=== PATIENT | female | born 1955 | race Hispanic/Latino ===

== ENCOUNTER 2018-12-10 20:05 | Inpatient (IN) | payer BC, OTHER ==
[2018-12-10] MEDS ORDERED: Morphine 4 mg/ml ISec IVP STA (20:18)
[2018-12-10] MEDS ORDERED: Sodium Chloride 0.9% 1,000 ML IV STA (20:18)
--- NOTE | 2018-12-10 20:31 | ED PDOC ---
Arrival/HPI - General Chief Complaint: Abdominal Pain Time Seen by Provider: 12/10/18 20:12 Historian: Patient - History of Present Illness Narrative History of Present Illness (Text): 12/10/18 20:33 63 year old female, with a past medical history of a left sided inguinal hernia, who presents to the Emergency department complaining of nausea, vomiting, and difficulty moving bowels x 2 days. Reports using enema with small bowel movement. Patient endorses persistent vomiting, causing her to come to the Emergency department. Patient reports hernia is usually reducible, but has not in the past few days. Patient denies any shortness of breath, chest pain, vaginal discharge, dysuria, or any other complaints. PMD: Kevin Davenport Time/Duration: < week Symptom Onset: Gradual Symptom Course: Unchanged Activities at Onset: Light Context: Home Past Medical History - Provider Review Nursing Documentation Reviewed: Yes - Infectious Disease Hx of Infectious Diseases: None - Cardiac Hx Cardiac Disorders: Yes Hx Hypertension: Yes (no meds hx) - Pulmonary Hx Respiratory Disorders: No - Neurological Hx Neurological Disorder: No - HEENT Hx HEENT Disorder: No - Renal Hx Renal Disorder: No - Endocrine/Metabolic Hx Endocrine Disorders: No - Hematological/Oncological Hx Blood Disorders: No - Integumentary Hx Dermatological Disorder: No - Musculoskeletal/Rheumatological Hx Musculoskeletal Disorders: No - Gastrointestinal Hx Gastrointestinal Disorders: No - Genitourinary/Gynecological Hx Genitourinary Disorders: No - Psychiatric Hx Psychophysiologic Disorder: No Hx Substance Use: No - Anesthesia Hx Anesthesia: No Family/Social History - Physician Review Nursing Documentation Reviewed: Yes Family/Social History: Unknown Family HX Smoking Status: Never Smoked Hx Alcohol Use: No Hx Substance Use: No Allergies/Home Meds Allergies/Adverse Reactions: Allergies No Known Allergies Allergy (Verified 12/10/18 20:17) Home Medications: Home Meds Medication Instructions Recorded Confirmed No Known Home Med 12/10/18 12/10/18 Review of Systems - Physician Review All systems were reviewed & negative as marked: Yes - Review of Systems Constitutional: absent: Fatigue Eyes: absent: Vision Changes ENT: absent: Hearing Changes Respiratory: absent: SOB Cardiovascular: absent: Chest Pain Gastrointestinal: Abdominal Pain, Constipation, Nausea, Vomiting. absent: Diarrhea Genitourinary Female: absent: Dysuria, Vaginal Discharge Musculoskeletal: absent: Back Pain, Neck Pain Skin: absent: Rash Neurological: absent: Headache, Dizziness Physical Exam Vital Signs Temp Pulse Resp BP Pulse Ox 12/10/18 20:11 97.5 F L 80 18 144/88 95 Temperature: Afebrile Blood Pressure: Normal Pulse: Regular Respiratory Rate: Normal Appearance: Positive for: Well-Appearing, Non-Toxic, Comfortable Pain Distress: None Mental Status: Positive for: Alert and Oriented X 3 - Systems Exam Head: Present: Atraumatic, Normocephalic Pupils: Present: PERRL Extroacular Muscles: Present: EOMI Conjunctiva: Present: Normal Mouth: Present: Moist Mucous Membranes Neck: Present: Normal Range of Motion Respiratory/Chest: Present: Clear to Auscultation, Good Air Exchange. No: Respiratory Distress, Accessory Muscle Use Cardiovascular: Present: Regular Rate and Rhythm, Normal S1, S2. No: Murmurs Abdomen: Present: Tenderness (left lower quadrant tenderness). No: Distention, Peritoneal Signs Genitourinary/Pelvic Exam: Present: Other (left sided ingunial hernia, non- reducible, hard) Back: Present: Normal Inspection Upper Extremity: Present: Normal Inspection. No: Cyanosis, Edema Lower Extremity: Present: Normal Inspection. No: Edema Neurological: Present: GCS=15, CN II-XII Intact, Speech Normal Skin: Present: Warm, Dry, Normal Color. No: Rashes Psychiatric: Present: Alert, Oriented x 3, Normal Insight, Normal Concentration Medical Decision Making ED Course and Treatment: 12/10/18 20:32 Impression: 63 year olf female presents tot he Emergency department complaining of nausea, vomiting, difficulty moving bowels x 2 days. Differential Diagnosis included but are not limited to: Plan: -- Basic labs -- Chest X-ray -- CT abd & pelvis -- Iv fluids -- Morphine -- Type and screen -- Reassess and disposition Prior Visits: Notes and results from previous visits were reviewed. Progress Notes: 12/10/18 21:15 Paged surgery resident due to concern for incarcerated hernia. 12/10/18 21:[address] Davenport who is requesting Dr. Fuentes for surgery 12/10/18 22:13 CT abd & pelvis reviewed by radiologist, shows: 1. Left inguinal hernia containing a segment of strangulated small intestinal tract leading to evolving mechanical small intestinal obstruction. Surgical consultation is recommended. 2. A small volume of abdominal and pelvic ascites is present. vice president compliance aware. Antibiotics ordered. IVF infusing. Accepted by Dr. Davenport - RAD Interpretation Radiology Orders: 12/10/18 20:17 ABD & PELVIS IV CONTRAST ONLY [CT] Stat - Medication Orders Current Medication Orders: Sodium Chloride (Sodium Chloride 0.9%) 1,000 mls @ 999 mls/hr IV .Q1H1M STA Stop: 12/10/18 21:18 Discontinued Medications Morphine Sulfate (Morphine) 4 mg IVP STAT STA Stop: 12/10/18 20:19 - Scribe Statement The provider has reviewed the documentation as recorded by the Nessaibe Suni Gomes All medical record entries made by the Nessaibandrea were at my direction and personally dictated by me. I have reviewed the chart and agree that the record accurately reflects my personal performance of the history, physical exam, medical decision making, and the department course for this patient. I have also personally directed, reviewed, and agree with the discharge instructions and disposition. Disposition/Present on Arrival - Present on Arrival Any Indicators Present on Arrival: No History of DVT/PE: No History of Uncontrolled Diabetes: No Urinary Catheter: No History of Decub. Ulcer: No History Surgical Site Infection Following: None - Disposition Have Diagnosis and Disposition been Completed?: Yes Diagnosis: Hypochloremia, Abdominal pain, Incarcerated hernia, SBO (small bowel obstruction) Disposition: HOSPITALIZED Disposition Time: 21:39 Patient Plan: Admission Condition: FAIR
[2018-12-10 20:49] LABS: BASO # 0.02 K/mm3 (0.0-2.0); BASO % 0.2 % (0.0-3.0); EOS % 0.1 % (1.5-5.0); HEMOGLOBIN 15.5 g/dL (12.0-16.0); LYMPH # 0.5 (1.2-3.4); LYMPH % 4.6 % (22.0-35.0); MEAN CELL VOLUME 88.4 fl (80.0-105.0); MEAN CORPUSCULAR HEMOGLOBIN 31.1 pg (25.0-35.0); MEAN CORPUSCULAR HGB CONC 35.2 g/dl (31.0-37.0); MEAN PLATELET VOLUME 9.6 fl (7.0-11.0); MONO # 0.5 (0.1-0.6); MONO % 4.9 % (1.0-6.0); PLATELET COUNT 222 10^3/uL (120.0-450.0); RBC 4.98 10^6/uL (3.5-6.1); RED CELL DISTRIBUTION WIDTH 12.9 % (11.5-14.5); WHITE BLOOD COUNT 9.7 10^3/uL (4.5-11.0)
[2018-12-10 20:50] LABS: ALB/GLOB RATIO 1.2 (1.1-1.8); ALBUMIN 4.5 g/dL (3.0-4.8); ALT/SGPT 26 U/L (7-56); AST/SGOT 55 U/L (14-36); BLOOD UREA NITROGEN 27 mg/dL (7-21); CALCIUM 9.7 mg/dL (8.4-10.5); GFR NON-AFRICAN AMERICAN 56; LIPASE 98 U/L (23-300)
[2018-12-10] MEDS ORDERED: Iohexol 350 MG/100 ML VIAL ONE (20:56)
[2018-12-10 20:57] LABS: INR 1.03; PARTIAL THROMBOPLASTIN TIME 28.2 Seconds (26.9-38.3); PROTHROMBIN TIME 11.4 SECONDS (9.4-12.5)
[2018-12-10 21:01] LABS: TROPONIN I 0.02 ng/mL
--- NOTE | 2018-12-10 21:41 | CP.PCM.CON ---
<Teena Rey - Last Filed: 12/12/18 10:31> History of Present Illness - History of Present Illness History of Present Illness: General Surgery consult for Dr. Fuentes Patient is a 63 F with no PMH who presents to [facility] with c/o n/v and painful bulge in left inguinal area. patient states she has had this hernia for some time but that since last night it has become hard and painful. patient states that she has been unable to pass gas today and last BM was yesterday but required enema. Patient otherwise denies KUMAR, f/c, CP, SOB, pain in left thigh and weakness in any extremity. Surgery was consulted for evaluation of incarcerated Left inguinal vs femoral hernia, CT A/P with IV contrast pending. PMH: denies PSH: eye surgery, Colonoscopy (approx 5 yrs ago normal) Family hx: denies Social: Medications: denies PMD: Dr. Kevin Davenport All: nkda Review of Systems - Review of Systems All systems: reviewed and no additional remarkable complaints except (as per HPI) Past Patient History - Infectious Disease Hx of Infectious Diseases: None - Past Social History Smoking Status: Never Smoked - CARDIAC Hx Cardiac Disorders: Yes Hx Hypertension: Yes (no meds hx) - PULMONARY Hx Respiratory Disorders: No - NEUROLOGICAL Hx Neurological Disorder: No - HEENT Hx HEENT Problems: No - RENAL Hx Chronic Kidney Disease: No - ENDOCRINE/METABOLIC Hx Endocrine Disorders: No - HEMATOLOGICAL/ONCOLOGICAL Hx Blood Disorders: No - INTEGUMENTARY Hx Dermatological Problems: No - MUSCULOSKELETAL/RHEUMATOLOGICAL Hx Musculoskeletal Disorders: No - GASTROINTESTINAL Hx Gastrointestinal Disorders: No - GENITOURINARY/GYNECOLOGICAL Hx Genitourinary Disorders: No - PSYCHIATRIC Hx Psychophysiologic Disorder: No Hx Substance Use: No - SURGICAL HISTORY Hx Surgeries: No - ANESTHESIA Hx Anesthesia: No Meds Allergies/Adverse Reactions: Allergies Allergy/AdvReac Type Severity Reaction Status Date / Time No Known Allergies Allergy Verified 12/10/18 20:17 Physical Exam - Constitutional Appears: Well, Non-toxic, No Acute Distress - Head Exam Head Exam: ATRAUMATIC, NORMOCEPHALIC - Eye Exam Eye Exam: EOMI - ENT Exam ENT Exam: Mucous Membranes Moist - Respiratory Exam Respiratory Exam: NORMAL BREATHING PATTERN - Cardiovascular Exam Cardiovascular Exam: REGULAR RHYTHM - GI/Abdominal Exam GI & Abdominal Exam: Hernia (left femoral, nonreducible, hard), Soft, Tenderness (mild diffuse). absent: Distended, Firm, Guarding, Rebound, Rigid - Extremities Exam Extremities exam: Positive for: pedal pulses present. Negative for: calf tenderness, pedal edema - Neurological Exam Neurological exam: Alert, Oriented x3 - Psychiatric Exam Psychiatric exam: Normal Affect, Normal Mood - Skin Skin Exam: Dry, Intact, Normal Color, Warm Additional comments: no erythema or other skin changes noted over hernia Results - Vital Signs Recent Vital Signs: Last Vital Signs Temp 97.5 F L 12/10/18 20:11 Pulse 80 12/10/18 20:11 Resp 18 12/10/18 20:11 BP 144/88 12/10/18 20:11 Pulse Ox 95 12/10/18 20:11 - Labs Result Diagrams: 12/12/18 06:10 12/12/18 06:10 Labs: Laboratory Results - last 24 hr 12/10/18 12/10/18 12/10/18 20:20 20:20 20:20 WBC 9.7 RBC 4.98 Hgb 15.5 Hct 44.0 MCV 88.4 MCH 31.1 MCHC 35.2 RDW 12.9 Plt Count 222 MPV 9.6 Neut % (Auto) 90.2 H Lymph % (Auto) 4.6 L Pike % (Auto) 4.9 Eos % (Auto) 0.1 L Baso % (Auto) 0.2 Lymph # (Auto) 0.5 L Pike # (Auto) 0.5 Eos # (Auto) 0.0 Baso # (Auto) 0.02 Absolute Neuts (auto) 8.76 H PT 11.4 INR 1.03 APTT 28.2 Sodium Potassium Chloride Carbon Dioxide Anion Gap BUN Creatinine Est GFR ( Amer) Est GFR (Non-Af Amer) Random Glucose Calcium Total Bilirubin AST ALT Alkaline Phosphatase Troponin I Total Protein Albumin Globulin Albumin/Globulin Ratio Lipase Blood Type A POSITIVE Antibody Screen Negative BBK History Checked No verified bt 12/10/18 20:20 WBC RBC Hgb Hct MCV MCH MCHC RDW Plt Count MPV Neut % (Auto) Lymph % (Auto) Pike % (Auto) Eos % (Auto) Baso % (Auto) Lymph # (Auto) Pike # (Auto) Eos # (Auto) Baso # (Auto) Absolute Neuts (auto) PT INR APTT Sodium 132 Potassium 3.9 Chloride 89 L Carbon Dioxide 28 Anion Gap 19 BUN 27 H Creatinine 1.0 Est GFR ( Amer) > 60 Est GFR (Non-Af Amer) 56 Random Glucose 127 H Calcium 9.7 Total Bilirubin 0.8 AST 55 H ALT 26 Alkaline Phosphatase 76 Troponin I 0.02 Total Protein 8.4 H Albumin 4.5 Globulin 3.9 Albumin/Globulin Ratio 1.2 Lipase 98 Blood Type Antibody Screen BBK History Checked Assessment & Plan - Assessment and Plan (Free Text) Assessment: 63 F with no PMH presenting with incarcerated Left femoral Hernia Plan: - IVF - Lactic Acid - rocephin and flagyl - NPO - NGT to decompress - pain control - Ice pack to affected area - plan for OR in AM - patient discussed with Dr. Fuentes, further recs per him Teena Rey, PGY 1 - Date & Time Date: 12/10/18 Time: 21:30 <Kwan Fuentes - Last Filed: 12/12/18 11:07> Meds - Medications Medications: Current Medications Acetaminophen (Tylenol 650 Mg Supp) 650 mg RC Q6H PRN PRN Reason: Fever >100.4 F Last Admin: 12/11/18 23:49 Dose: 650 mg Benzocaine/Menthol (Cepacol Sore Throat) 1 christopher MT Q2H PRN PRN Reason: Sore Throat Fentanyl (Fentanyl) 25 mcg IV Q5M PRN PRN Reason: Pain, moderate (4-7) Last Admin: 12/11/18 12:17 Dose: 25 mcg Heparin Sodium (Porcine) (Heparin) 5,000 units SC Q8 KELECHI; Protocol Last Admin: 12/12/18 05:52 Dose: 5,000 units Metronidazole (Flagyl) 500 mg in 100 mls @ 100 mls/hr IVPB Q8 KELECHI; Protocol Last Admin: 12/12/18 05:52 Dose: 100 mls/hr Sodium Chloride (Sodium Chloride 0.9%) 1,000 mls @ 150 mls/hr IV .Q6H40M KELECHI Last Admin: 12/11/18 05:46 Dose: 150 mls/hr Labetalol HCl (Trandate) 5 mg IV Q5MIN PRN PRN Reason: Systolic Blood Pressure Last Admin: 12/11/18 12:45 Dose: 5 mg Metoprolol Tartrate (Lopressor) 50 mg PO BID KELECHI Last Admin: 12/12/18 09:33 Dose: 50 mg Morphine Sulfate (Morphine) 4 mg IVP Q4H PRN PRN Reason: Pain, moderate (4-7) Last Admin: 12/11/18 04:25 Dose: 4 mg Ondansetron HCl (Zofran Inj) 4 mg IVP Q4H PRN PRN Reason: Nausea/Vomiting Results - Vital Signs Recent Vital Signs: Last Vital Signs Temp 98.2 F 12/12/18 08:44 Pulse 79 12/12/18 09:33 Resp 20 12/12/18 08:44 BP 170/93 H 12/12/18 09:33 Pulse Ox 97 12/12/18 08:44 - Labs Result Diagrams: 12/12/18 06:10 12/12/18 06:10 Labs: Laboratory Results - last 24 hr 12/11/18 12/11/18 12/11/18 19:30 19:30 19:30 WBC 1.1 L* D RBC 3.67 Hgb 11.3 L Hct 32.7 L MCV 89.1 MCH 30.8 MCHC 34.6 RDW 13.2 Plt Count 154 MPV 9.4 Neut % (Auto) Lymph % (Auto) Pike % (Auto) Eos % (Auto) Baso % (Auto) Lymph # (Auto) Pike # (Auto) Eos # (Auto) Baso # (Auto) Absolute Neuts (auto) pCO2 pO2 HCO3 ABG pH ABG Total CO2 ABG O2 Saturation ABG Base Excess ABG Potassium Glucose Lactate FiO2 Sodium 133 Potassium 3.7 Chloride 102 Carbon Dioxide 26 Anion Gap 9 L BUN 25 H Creatinine 0.6 L Est GFR ( Amer) > 60 Est GFR (Non-Af Amer) > 60 Random Glucose 151 H Lactic Acid 1.3 Calcium 8.1 L Phosphorus 2.4 L Magnesium 2.0 Total Bilirubin 0.4 AST 31 ALT 23 Alkaline Phosphatase 44 Total Protein 6.0 Albumin 3.1 Globulin 2.9 Albumin/Globulin Ratio 1.1 Arterial Blood Potassium 12/11/18 12/12/18 12/12/18 22:49 06:10 06:10 WBC 3.8 L D RBC 3.71 Hgb 11.0 L Hct 33.3 L MCV 89.8 MCH 29.6 MCHC 33.0 RDW 13.3 Plt Count 155 MPV 9.7 Neut % (Auto) 79.5 H Lymph % (Auto) 8.8 L Pike % (Auto) 11.7 H Eos % (Auto) 0.0 L Baso % (Auto) 0.0 Lymph # (Auto) 0.3 L Pike # (Auto) 0.4 Eos # (Auto) 0.0 Baso # (Auto) 0.00 Absolute Neuts (auto) 3.00 pCO2 37 pO2 129.0 H HCO3 26.9 ABG pH 7.47 H ABG Total CO2 28.0 ABG O2 Saturation 99.7 H ABG Base Excess 3.2 H ABG Potassium 3.4 L Glucose 135 H Lactate 1.0 FiO2 28.0 Sodium 136.0 137 Potassium 4.3 Chloride 105.0 103 Carbon Dioxide 29 Anion Gap 9 L BUN 19 Creatinine 0.5 L Est GFR ( Amer) > 60 Est GFR (Non-Af Amer) > 60 Random Glucose 157 H Lactic Acid Calcium 8.4 Phosphorus 2.5 Magnesium 2.2 Total Bilirubin 0.4 AST 28 ALT 22 Alkaline Phosphatase 45 Total Protein 6.1 Albumin 3.2 Globulin 2.9 Albumin/Globulin Ratio 1.1 Arterial Blood Potassium 3.4 L Assessment & Plan - Assessment and Plan (Free Text) Plan: Dx Incarc Left Inguino-femoral hernia/SBO/Dehudration Piter OR/Rehydratw This consult done under my direct supervision Dara Fuentes MD FACS
[2018-12-10] MEDS ORDERED: Sodium Chloride 0.9% 1,000 ML IV SCH (21:45)
[2018-12-10] MEDS ORDERED: Morphine 2 mg/ml ISec IVP PRN (21:49)
[2018-12-10] MEDS ORDERED: cefTRIAXone 1 gm 1 GM/100 ML BAG IVPB STA (21:50)
[2018-12-10] MEDS ORDERED: metroNIDAZOLE IV 500 mg/100 ml 500 MG/100 ML BAG IVPB STA (21:50)
[2018-12-10 22:02] LABS: VENOUS BLOOD GAS BASE EXCESS 1.7 mmol/L (0.0-2.0); VENOUS BLOOD GAS PO2 54 mm/Hg (30-55); VENOUS BLOOD PH 7.39 (7.32-7.43)
[2018-12-10 22:10] LABS: BAND 6 % (0-2); LYMPHOCYTE 4 % (22.0-35.0); MONOCYTE 4 % (1.0-6.0); NEUTROPHIL 86 % (50.0-70.0)
[2018-12-10 22:11] LABS: PLATELET ESTIMATE NORMAL (NORMAL)
[2018-12-10] MEDS ORDERED: Morphine 4 mg/ml ISec IVP PRN (22:41)
[2018-12-10] MEDS: Sodium Chloride 0.9% 1,000 ML IV SCH (23:11)
[2018-12-10] MEDS ORDERED: Benzocaine/Menthol (Cepacol) Lozenge MT PRN (23:27)
[2018-12-11 02:37] VITALS: BMI 18.8
[2018-12-11] MEDS: metroNIDAZOLE IV 500 mg/100 ml 500 MG/100 ML BAG IVPB SCH ×3 (05:44→22:16)
[2018-12-11] MEDS: Sodium Chloride 0.9% 1,000 ML IV SCH (05:46)
[2018-12-11] MEDS ORDERED: Morphine 2 mg/ml ISec IVP STA (07:07)
[2018-12-11 07:19] LABS: BASO # 0.01 K/mm3 (0.0-2.0); BASO % 0.3 % (0.0-3.0); HEMOGLOBIN 13.2 g/dL (12.0-16.0); LYMPH # 0.4 (1.2-3.4); MEAN CELL VOLUME 88.8 fl (80.0-105.0); MEAN CORPUSCULAR HEMOGLOBIN 30.7 pg (25.0-35.0); MEAN CORPUSCULAR HGB CONC 34.6 g/dl (31.0-37.0); MEAN PLATELET VOLUME 9.6 fl (7.0-11.0); MONO # 0.4 (0.1-0.6); MONO % 10.8 % (1.0-6.0); RBC 4.3 10^6/uL (3.5-6.1); RED CELL DISTRIBUTION WIDTH 13.2 % (11.5-14.5); WHITE BLOOD COUNT 3.5 10^3/uL (4.5-11.0)
[2018-12-11 07:34] LABS: ALB/GLOB RATIO 1.1 (1.1-1.8); ALBUMIN 3.6 g/dL (3.0-4.8); ALT/SGPT 19 U/L (7-56); AST/SGOT 39 U/L (14-36); BLOOD UREA NITROGEN 25 mg/dL (7-21); CALCIUM 8.5 mg/dL (8.4-10.5); GFR NON-AFRICAN AMERICAN > 60
--- NOTE | 2018-12-11 09:17 | CT ---
Date of service: 12/10/2018 PROCEDURE: CT Abdomen and Pelvis with contrast HISTORY: abdominal pain, L inguinal hernia COMPARISON: None. TECHNIQUE: Contrast dose: 100 cc of Omni 350 Radiation dose: Total exam DLP = 197.16 mGy-cm. This CT exam was performed using one or more of the following dose reduction techniques: Automated exposure control, adjustment of the mA and/or kV according to patient size, and/or use of iterative reconstruction technique. FINDINGS: LOWER THORAX: Unremarkable. LIVER: Unremarkable. No gross lesion or ductal dilatation. GALLBLADDER AND BILE DUCTS: Unremarkable. PANCREAS: Unremarkable. No gross lesion or ductal dilatation. SPLEEN: Unremarkable. ADRENALS: Unremarkable. No mass. KIDNEYS AND URETERS: Unremarkable. No hydronephrosis. No solid mass. VASCULATURE: Unremarkable. No aortic aneurysm. No aortic atherosclerotic calcification or mural plaque present. BOWEL: There is a left inguinal hernia producing mechanical obstruction. The small bowel is diffusely dilated measuring up to 3 point 2 cm in diameter. There is no evidence of pneumatosis or free air. Surgical consultation is recommended. APPENDIX: Normal appendix. PERITONEUM: There is a small amount of ascites. LYMPH NODES: Unremarkable. No enlarged lymph nodes. BLADDER: Unremarkable. REPRODUCTIVE: Unremarkable. BONES: No acute fracture. OTHER FINDINGS: The report concurs with the preliminary [facility] report IMPRESSION: There is a left inguinal hernia producing mechanical obstruction. The small bowel is diffusely dilated measuring up to 3.2 cm in diameter. There is no evidence of pneumatosis or free air. Surgical consultation is recommended.
--- NOTE | 2018-12-11 09:49 | RAD ---
Date of service: 12/10/2018 HISTORY: post NGT placement COMPARISON: 12/10/2018 at 8:33 p.m. FINDINGS: LUNGS: No active pulmonary disease. PLEURA: No significant pleural effusion identified, no pneumothorax apparent. CARDIOVASCULAR: No aortic atherosclerotic calcification present. Normal cardiac size. No congestive change. New nasogastric tube extends to left upper quadrant of the abdomen. OSSEOUS STRUCTURES: No significant abnormalities. VISUALIZED UPPER ABDOMEN: Normal. OTHER FINDINGS: None. IMPRESSION: New nasogastric tube appropriately positioned. Otherwise unremarkable.
--- NOTE | 2018-12-11 09:50 | RAD ---
Date of service: 12/10/2018 HISTORY: admission COMPARISON: No prior. FINDINGS: LUNGS: No active pulmonary disease. PLEURA: No significant pleural effusion identified, no pneumothorax apparent. CARDIOVASCULAR: No aortic atherosclerotic calcification present. Normal cardiac size. No pulmonary vascular congestion. OSSEOUS STRUCTURES: No significant abnormalities. VISUALIZED UPPER ABDOMEN: Normal. OTHER FINDINGS: None. IMPRESSION: No active disease.
[2018-12-11] MEDS ORDERED: cefTRIAXone 1 gm 1 GM/100 ML BAG IVPB SCH (10:00)
[2018-12-11] MEDS ORDERED: Propofol 10 mg/ml Inj (20 ML) ONE (10:07)
[2018-12-11] MEDS ORDERED: Bupivacaine 0.5% 50 ML IJ ONE (10:14)
[2018-12-11] MEDS ORDERED: Succinylcholine 200 mg/10 ml Inj IV ONE (10:21)
[2018-12-11] MEDS ORDERED: cefTRIAXone (Rocephin) 1 gm Inj ONE (10:35)
[2018-12-11] MEDS ORDERED: Bupivacaine Liposomal Inj 20 ml ONE (10:35)
[2018-12-11] MEDS ORDERED: Phenylephrine 10 mg/ml Inj ONE (12:01)
[2018-12-11] MEDS ORDERED: Neostigmine Methylsulfate 3mg/3ml Syringe IV ONE (12:01)
[2018-12-11] MEDS ORDERED: Labetalol 5 mg/ml Inj 20ML IV PRN (12:05)
--- NOTE | 2018-12-11 12:05 | PCM.SURG1 ---
Surgeon's Initial Post Op Note - Surgeon's Notes Surgeon: Dr. Fuentes Torch Brazer: Glenn PGY2 Type of Anesthesia: General Endo, Local Anesthesia Administered By: Dr. Laureano Pre-Operative Diagnosis: Incarcerated Left Femoral Hernia Operative Findings: See operative report Post-Operative Diagnosis: same Operation Performed: Open Left Femoral Hernia Repair with plug mesh Specimen/Specimens Removed: Ascites fluid culture. Hernia sac Estimated Blood Loss: EBL {In ML}: 10 Blood Products Given: N/A Drains Used: No Drains Post-Op Condition: Good Date of Surgery/Procedure: 12/11/18 Time of Surgery/Procedure: 12:05
[2018-12-11] MEDS ORDERED: Lactated Ringer's 1,000 ML IV SCH (12:15)
[2018-12-11] MEDS ORDERED: Labetalol 5mg/ml (4ml) ONE (12:22)
--- NOTE | 2018-12-11 18:47 | RAD ---
Date of service: 12/11/2018 HISTORY: r/o aspiration pna COMPARISON: 12/10/2018 FINDINGS: The nasogastric tube terminates in the stomach. LUNGS: The lungs are well inflated and clear. There is bibasilar atelectasis. No focal consolidation. PLEURA: No pleural effusions or pneumothorax. CARDIOVASCULAR: The heart is normal in size. No aortic atherosclerotic calcifications present. OSSEOUS STRUCTURES: Within normal limits for the patient's age. VISUALIZED UPPER ABDOMEN: Normal. OTHER FINDINGS: None. IMPRESSION: No active pulmonary disease.
[2018-12-11 19:36] LABS: HEMOGLOBIN 11.3 g/dL (12.0-16.0); MEAN CELL VOLUME 89.1 fl (80.0-105.0); MEAN CORPUSCULAR HEMOGLOBIN 30.8 pg (25.0-35.0); MEAN CORPUSCULAR HGB CONC 34.6 g/dl (31.0-37.0); MEAN PLATELET VOLUME 9.4 fl (7.0-11.0); RBC 3.67 10^6/uL (3.5-6.1); RED CELL DISTRIBUTION WIDTH 13.2 % (11.5-14.5)
[2018-12-11 19:40] LABS: WHITE BLOOD COUNT 1.1 10^3/uL (4.5-11.0)
[2018-12-11 20:00] LABS: ALB/GLOB RATIO 1.1 (1.1-1.8); ALBUMIN 3.1 g/dL (3.0-4.8); ALT/SGPT 23 U/L (7-56); AST/SGOT 31 U/L (14-36); BLOOD UREA NITROGEN 25 mg/dL (7-21); CALCIUM 8.1 mg/dL (8.4-10.5); GFR NON-AFRICAN AMERICAN > 60
--- NOTE | 2018-12-11 21:12 | CARD ---
APPROVED REPORT Date of service: 12/10/2018 EKG Measurement Heart [id number] <Conclusion> Normal sinus rhythm Possible Left atrial enlargement Incomplete right bundle branch block Otherwise normal ECG
--- NOTE | 2018-12-11 22:00 | HP ---
DATE OF EXAM: 12/11/2018 HISTORY OF PRESENT ILLNESS: The patient is a 63-year-old female admitted through the emergency department on 12/10/2018 with left-sided abdominal pain 1-2 days' duration with nausea, vomiting and no bowel movement over the past couple of days. There is no melena. No bright red blood per rectum. The patient has a history of reducible left-sided hernia. CT scan of the abdomen and pelvis revealed mechanical obstruction due to left inguinal hernia and the patient is admitted for further evaluation and management. PAST MEDICAL HISTORY: Includes hypertension. There is no history of heart disease. 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 The patient also has a history of migraine, depression, and anemia in the past. PAST SURGICAL HISTORY: The patient has no significant past surgical history. ALLERGIES: SHE REPORTS ALLERGY TO PENICILLIN. CURRENT MEDICATIONS: She is on no current medications. SOCIAL HISTORY: There is no history of tobacco or alcohol use. FAMILY HISTORY: Noncontributory. REVIEW OF SYSTEMS: There is no fever. No chills. No jaundice. No nausea or vomiting at present. No chest pain or shortness of breath. PHYSICAL EXAMINATION: GENERAL: The patient is a well-developed thin female in no acute distress. VITAL SIGNS: Blood pressure 148/98, temperature 98.2, pulse 98, and respiratory rate 15. HEENT: Head is normocephalic and atraumatic. Pupils equal, round, and reactive to light. Extraocular movements intact. NECK: Supple with no thyromegaly. No carotid bruit. No adenopathy. LUNGS: Clear. HEART: Regular rate and rhythm. ABDOMEN: Soft with some left lower quadrant tenderness to palpation with no guarding and no rebound. Bowel sounds are slightly hypoactive. EXTREMITIES: Without cyanosis, clubbing or edema. NEUROLOGIC: The patient is awake and oriented x3 without focal sensory or motor deficits. SKIN: Warm and dry. LABORATORY DATA: WBC 3.5, hemoglobin 13.2, and hematocrit 38.2. Sodium 135, potassium 3.8, chloride 99, CO2 of 26, BUN 25, creatinine 0.6, and glucose 138. AST is slightly elevated at 39. Chest x-ray shows no active disease. IMPRESSION: 1. Mechanical small-bowel obstruction due to left inguinal hernia. 2. History of hypertension. PLAN The patient was seen in consultation by Surgery, Dr. Kwan Fuentes and will go to the OR today for management of the bowel obstruction. There are no medical contraindications to surgery general anesthesia. We will monitor the patient postoperatively. DANIEL Montague MD
[2018-12-11 22:52] LABS: ARTERIAL BLOOD GAS HCO3 26.9 mmol/L (21-28); ARTERIAL BLOOD GAS O2 SAT 99.7 % (95-98); ARTERIAL BLOOD GAS PCO2 37 mm/Hg (35-45); ARTERIAL BLOOD GAS PH 7.47 (7.35-7.45)
[2018-12-12] MEDS: metroNIDAZOLE IV 500 mg/100 ml 500 MG/100 ML BAG IVPB SCH ×2 (05:52→13:59)
[2018-12-12 07:12] LABS: LYMPH # 0.3 (1.2-3.4); LYMPH % 8.8 % (22.0-35.0); MEAN CELL VOLUME 89.8 fl (80.0-105.0); MEAN CORPUSCULAR HEMOGLOBIN 29.6 pg (25.0-35.0); MEAN PLATELET VOLUME 9.7 fl (7.0-11.0); MONO # 0.4 (0.1-0.6); MONO % 11.7 % (1.0-6.0); RBC 3.71 10^6/uL (3.5-6.1); RED CELL DISTRIBUTION WIDTH 13.3 % (11.5-14.5); WHITE BLOOD COUNT 3.8 10^3/uL (4.5-11.0)
[2018-12-12 07:20] LABS: ALB/GLOB RATIO 1.1 (1.1-1.8); ALBUMIN 3.2 g/dL (3.0-4.8); ALT/SGPT 22 U/L (7-56); AST/SGOT 28 U/L (14-36); BLOOD UREA NITROGEN 19 mg/dL (7-21); CALCIUM 8.4 mg/dL (8.4-10.5); GFR NON-AFRICAN AMERICAN > 60
--- NOTE | 2018-12-12 10:14 | CP.PCM.PN ---
Subjective - Date & Time of Evaluation Date of Evaluation: 12/12/18 Time of Evaluation: 10:08 - Subjective Subjective: Surgery Progress note. Dr. Fuentes Pt seen and examined at bedside. Febrile overnight with Tmax of 102.3F rectal. Currently, patient reports improving abdominal pain. Denies N/V. Reports having flatus. No BMs. Has been making adequate urine output hourly as reported overnight. States that she would like to have liquids and states that she is thirsty. Objective - Vital Signs/Intake and Output Vital Signs (last 24 hours): Temp Pulse Resp BP Pulse Ox 98.2 F 79 20 170/93 H 97 12/12/18 08:44 12/12/18 09:33 12/12/18 08:44 12/12/18 09:33 12/12/18 08:44 Intake and Output: 12/12/18 12/12/18 06:59 18:59 Intake Total 3600 0 Output Total 900 600 Balance 2700 -600 - Medications Medications: Current Medications Acetaminophen (Tylenol 650 Mg Supp) 650 mg RC Q6H PRN PRN Reason: Fever >100.4 F Last Admin: 12/11/18 23:49 Dose: 650 mg Benzocaine/Menthol (Cepacol Sore Throat) 1 christopher MT Q2H PRN PRN Reason: Sore Throat Fentanyl (Fentanyl) 25 mcg IV Q5M PRN PRN Reason: Pain, moderate (4-7) Last Admin: 12/11/18 12:17 Dose: 25 mcg Heparin Sodium (Porcine) (Heparin) 5,000 units SC Q8 KELECHI; Protocol Last Admin: 12/12/18 05:52 Dose: 5,000 units Metronidazole (Flagyl) 500 mg in 100 mls @ 100 mls/hr IVPB Q8 KELECHI; Protocol Last Admin: 12/12/18 05:52 Dose: 100 mls/hr Sodium Chloride (Sodium Chloride 0.9%) 1,000 mls @ 150 mls/hr IV .Q6H40M KELECHI Last Admin: 12/11/18 05:46 Dose: 150 mls/hr Labetalol HCl (Trandate) 5 mg IV Q5MIN PRN PRN Reason: Systolic Blood Pressure Last Admin: 12/11/18 12:45 Dose: 5 mg Metoprolol Tartrate (Lopressor) 50 mg PO BID [facility] Last Admin: 12/12/18 09:33 Dose: 50 mg Morphine Sulfate (Morphine) 4 mg IVP Q4H PRN PRN Reason: Pain, moderate (4-7) Last Admin: 12/11/18 04:25 Dose: 4 mg Ondansetron HCl (Zofran Inj) 4 mg IVP Q4H PRN PRN Reason: Nausea/Vomiting - Labs Labs: 12/12/18 06:10 12/12/18 06:10 PT 11.4 SECONDS (9.4-12.5) 12/10/18 20:20 INR 1.03 12/10/18 20:20 APTT 28.2 Seconds (26.9-38.3) 12/10/18 20:20 - Constitutional Appears: Well, Non-toxic, No Acute Distress - Head Exam Head Exam: ATRAUMATIC, NORMAL INSPECTION, NORMOCEPHALIC - Eye Exam Eye Exam: EOMI, Normal appearance. absent: Scleral icterus - ENT Exam ENT Exam: Mucous Membranes Moist - Neck Exam Neck Exam: absent: Tenderness - Respiratory Exam Respiratory Exam: NORMAL BREATHING PATTERN. absent: Accessory Muscle Use, Respiratory Distress - Cardiovascular Exam Cardiovascular Exam: RRR. absent: JVD - GI/Abdominal Exam GI & Abdominal Exam: Soft. absent: Distended, Firm, Guarding, Rigid, Rebound Additional comments: Left groin dressing clean, dry and intact. Mild brian-incisional abdominal tenderness - Neurological Exam Neurological Exam: Alert, Awake, Oriented x3 - Psychiatric Exam Psychiatric exam: Normal Affect, Normal Mood - Skin Skin Exam: Dry, Intact, Normal Color, Warm Assessment and Plan - Assessment and Plan (Free Text) Assessment: 63yo F with incarcerated femoral hernia, s/p left femoral hernia repair with mesh Plan: - D/C NGT - D/C ulrich - f/u Infectious Disease recommendations - Clear Liquid diet - Monitor for bowel function - Void check Further recs as per Dr. Alfredo Elizabeth PGY2 surgery
--- NOTE | 2018-12-12 11:20 | CP.PCM.CON ---
<David Erickson - Last Filed: 12/12/18 11:11> History of Present Illness - History of Present Illness History of Present Illness: David Erickson D.O. PGY-3, Internal Medicine Resident, Infectious Disease Consultation Note 63-year-old walker no significant past medical history presented for complaints of nausea, vomiting, difficulty with defecation for 2 days. Patient was found to have an incarcerated left femoral hernia and was taking the operating room on 12/11. Infectious disease consultation was requested for fevers overnight as high as 102.3. Patient was seen and examined at bedside. Patient states that she has some discomfort but nothing like when she first originally presented. Patient states that the postsurgical site is not painful at this time. Patient's main complaint at this time is the nasogastric tube which she is hoping gets pulled out today. Patient denies any coughing, headache, lightheadedness, dysuria, urinary frequency, or other concerning signs at this time. Review of Systems - Review of Systems All systems: reviewed and no additional remarkable complaints except (as per HPI) Past Patient History - Infectious Disease Hx of Infectious Diseases: None - Past Social History Smoking Status: Never Smoked - CARDIAC Hx Cardiac Disorders: Yes Hx Hypertension: Yes (no meds hx) - PULMONARY Hx Respiratory Disorders: No - NEUROLOGICAL Hx Neurological Disorder: No - HEENT Hx HEENT Problems: No - RENAL Hx Chronic Kidney Disease: No - ENDOCRINE/METABOLIC Hx Endocrine Disorders: No - HEMATOLOGICAL/ONCOLOGICAL Hx Blood Disorders: No - INTEGUMENTARY Hx Dermatological Problems: No - MUSCULOSKELETAL/RHEUMATOLOGICAL Hx Musculoskeletal Disorders: No - GASTROINTESTINAL Hx Gastrointestinal Disorders: No - GENITOURINARY/GYNECOLOGICAL Hx Genitourinary Disorders: No - PSYCHIATRIC Hx Psychophysiologic Disorder: No Hx Substance Use: No - SURGICAL HISTORY Hx Surgeries: No - ANESTHESIA Hx Anesthesia: No Meds Allergies/Adverse Reactions: Allergies Allergy/AdvReac Type Severity Reaction Status Date / Time No Known Allergies Allergy Verified 12/10/18 20:17 - Medications Medications: Current Medications Acetaminophen (Tylenol 650 Mg Supp) 650 mg RC Q6H PRN PRN Reason: Fever >100.4 F Last Admin: 12/11/18 23:49 Dose: 650 mg Benzocaine/Menthol (Cepacol Sore Throat) 1 christopher MT Q2H PRN PRN Reason: Sore Throat Fentanyl (Fentanyl) 25 mcg IV Q5M PRN PRN Reason: Pain, moderate (4-7) Last Admin: 12/11/18 12:17 Dose: 25 mcg Heparin Sodium (Porcine) (Heparin) 5,000 units SC Q8 KELECHI; Protocol Last Admin: 12/12/18 05:52 Dose: 5,000 units Metronidazole (Flagyl) 500 mg in 100 mls @ 100 mls/hr IVPB Q8 KELECHI; Protocol Last Admin: 12/12/18 05:52 Dose: 100 mls/hr Sodium Chloride (Sodium Chloride 0.9%) 1,000 mls @ 150 mls/hr IV .Q6H40M [facility] Last Admin: 12/11/18 05:46 Dose: 150 mls/hr Labetalol HCl (Trandate) 5 mg IV Q5MIN PRN PRN Reason: Systolic Blood Pressure Last Admin: 12/11/18 12:45 Dose: 5 mg Metoprolol Tartrate (Lopressor) 50 mg PO BID [facility] Last Admin: 12/12/18 09:33 Dose: 50 mg Morphine Sulfate (Morphine) 4 mg IVP Q4H PRN PRN Reason: Pain, moderate (4-7) Last Admin: 12/11/18 04:25 Dose: 4 mg Ondansetron HCl (Zofran Inj) 4 mg IVP Q4H PRN PRN Reason: Nausea/Vomiting Physical Exam - Constitutional Appears: No Acute Distress - Head Exam Head Exam: NORMOCEPHALIC - Eye Exam Eye Exam: absent: Scleral icterus - ENT Exam ENT Exam: Mucous Membranes Dry - Neck Exam Neck exam: Positive for: Normal Inspection - Respiratory Exam Respiratory Exam: absent: Rales, Rhonchi, Wheezes - Cardiovascular Exam Cardiovascular Exam: +S1, +S2 - GI/Abdominal Exam GI & Abdominal Exam: Soft. absent: Tenderness - Extremities Exam Extremities exam: Negative for: calf tenderness, pedal edema - Neurological Exam Neurological exam: Alert, Oriented x3 - Skin Skin Exam: Dry, Warm Results - Vital Signs Recent Vital Signs: Last Vital Signs Temp 98.2 F 12/12/18 08:44 Pulse 79 12/12/18 09:33 Resp 20 12/12/18 08:44 BP 170/93 H 12/12/18 09:33 Pulse Ox 97 12/12/18 08:44 - Labs Result Diagrams: 12/12/18 06:10 12/12/18 06:10 Labs: Laboratory Results - last 24 hr 12/11/18 12/11/18 12/11/18 19:30 19:30 19:30 WBC 1.1 L* D RBC 3.67 Hgb 11.3 L Hct 32.7 L MCV 89.1 MCH 30.8 MCHC 34.6 RDW 13.2 Plt Count 154 MPV 9.4 Neut % (Auto) Lymph % (Auto) Randall % (Auto) Eos % (Auto) Baso % (Auto) Lymph # (Auto) Randall # (Auto) Eos # (Auto) Baso # (Auto) Absolute Neuts (auto) pCO2 pO2 HCO3 ABG pH ABG Total CO2 ABG O2 Saturation ABG Base Excess ABG Potassium Glucose Lactate FiO2 Sodium 133 Potassium 3.7 Chloride 102 Carbon Dioxide 26 Anion Gap 9 L BUN 25 H Creatinine 0.6 L Est GFR ( Amer) > 60 Est GFR (Non-Af Amer) > 60 Random Glucose 151 H Lactic Acid 1.3 Calcium 8.1 L Phosphorus 2.4 L Magnesium 2.0 Total Bilirubin 0.4 AST 31 ALT 23 Alkaline Phosphatase 44 Total Protein 6.0 Albumin 3.1 Globulin 2.9 Albumin/Globulin Ratio 1.1 Arterial Blood Potassium 12/11/18 12/12/18 12/12/18 22:49 06:10 06:10 WBC 3.8 L D RBC 3.71 Hgb 11.0 L Hct 33.3 L MCV 89.8 MCH 29.6 MCHC 33.0 RDW 13.3 Plt Count 155 MPV 9.7 Neut % (Auto) 79.5 H Lymph % (Auto) 8.8 L Randall % (Auto) 11.7 H Eos % (Auto) 0.0 L Baso % (Auto) 0.0 Lymph # (Auto) 0.3 L Randall # (Auto) 0.4 Eos # (Auto) 0.0 Baso # (Auto) 0.00 Absolute Neuts (auto) 3.00 pCO2 37 pO2 129.0 H HCO3 26.9 ABG pH 7.47 H ABG Total CO2 28.0 ABG O2 Saturation 99.7 H ABG Base Excess 3.2 H ABG Potassium 3.4 L Glucose 135 H Lactate 1.0 FiO2 28.0 Sodium 136.0 137 Potassium 4.3 Chloride 105.0 103 Carbon Dioxide 29 Anion Gap 9 L BUN 19 Creatinine 0.5 L Est GFR ( Amer) > 60 Est GFR (Non-Af Amer) > 60 Random Glucose 157 H Lactic Acid Calcium 8.4 Phosphorus 2.5 Magnesium 2.2 Total Bilirubin 0.4 AST 28 ALT 22 Alkaline Phosphatase 45 Total Protein 6.1 Albumin 3.2 Globulin 2.9 Albumin/Globulin Ratio 1.1 Arterial Blood Potassium 3.4 L Assessment & Plan - Assessment and Plan (Free Text) Assessment: 63-year-old walker no significant past medical history presented for complaints of nausea, vomiting, difficulty with defecation for 2 days. Patient was found to have an incarcerated left femoral hernia and was taking the operating room on 12/11. Infectious disease consultation was requested for fevers overnight as high as 102.3. Plan: SIRS Incarcerated inguinal hernia s/p surgery Had fevers as high as 102.3, tachycardia, and leukopenia Given the timeline is most likely that this is a systemic reaction from the surgery versus infection Discussed with surgery team who confirmed that there was no presence of that bowel or other possible causes of fevers postoperatively Recommend evaluation for leukopenia per primary team Chest x-ray reveals no signs of disease UA ordered Blood cultures are 1/1 day 1 Repeat blood cultures We will follow with you Patient was seen and examined and case will be discussed with attending physician Thank you for the pleasure participating in the care of this interesting patient - Date & Time Date: 12/12/18 Time: 10:25 <Jr Castañeda - Last Filed: 12/12/18 13:37> Meds - Medications Medications: Current Medications Acetaminophen (Tylenol 650 Mg Supp) 650 mg RC Q6H PRN PRN Reason: Fever >100.4 F Last Admin: 12/11/18 23:49 Dose: 650 mg Benzocaine/Menthol (Cepacol Sore Throat) 1 christopher MT Q2H PRN PRN Reason: Sore Throat Fentanyl (Fentanyl) 25 mcg IV Q5M PRN PRN Reason: Pain, moderate (4-7) Last Admin: 12/11/18 12:17 Dose: 25 mcg Heparin Sodium (Porcine) (Heparin) 5,000 units SC Q8 KELECHI; Protocol Last Admin: 12/12/18 05:52 Dose: 5,000 units Metronidazole (Flagyl) 500 mg in 100 mls @ 100 mls/hr IVPB Q8 KELECHI; Protocol Last Admin: 12/12/18 05:52 Dose: 100 mls/hr Sodium Chloride (Sodium Chloride 0.9%) 1,000 mls @ 150 mls/hr IV .Q6H40M KELECHI Last Admin: 12/11/18 05:46 Dose: 150 mls/hr Piperacillin Sod/Tazobactam Sod (Zosyn 3.375 In Ns 100ml) 100 mls @ 25 mls/hr IVPB Q8 KELECHI; Protocol Stop: 12/21/18 14:01 Labetalol HCl (Trandate) 5 mg IV Q5MIN PRN PRN Reason: Systolic Blood Pressure Last Admin: 12/11/18 12:45 Dose: 5 mg Metoprolol Tartrate (Lopressor) 50 mg PO BID [facility] Last Admin: 12/12/18 09:33 Dose: 50 mg Morphine Sulfate (Morphine) 4 mg IVP Q4H PRN PRN Reason: Pain, moderate (4-7) Last Admin: 12/11/18 04:25 Dose: 4 mg Ondansetron HCl (Zofran Inj) 4 mg IVP Q4H PRN PRN Reason: Nausea/Vomiting Results - Vital Signs Recent Vital Signs: Last Vital Signs Temp 98.2 F 12/12/18 08:44 Pulse 79 12/12/18 09:33 Resp 20 12/12/18 08:44 BP 170/93 H 12/12/18 09:33 Pulse Ox 97 12/12/18 08:44 - Labs Result Diagrams: 12/12/18 06:10 12/12/18 06:10 Labs: Laboratory Results - last 24 hr 12/11/18 12/11/18 12/11/18 19:30 19:30 19:30 WBC 1.1 L* D RBC 3.67 Hgb 11.3 L Hct 32.7 L MCV 89.1 MCH 30.8 MCHC 34.6 RDW 13.2 Plt Count 154 MPV 9.4 Neut % (Auto) Lymph % (Auto) Randall % (Auto) Eos % (Auto) Baso % (Auto) Lymph # (Auto) Randall # (Auto) Eos # (Auto) Baso # (Auto) Absolute Neuts (auto) pCO2 pO2 HCO3 ABG pH ABG Total CO2 ABG O2 Saturation ABG Base Excess ABG Potassium Glucose Lactate FiO2 Sodium 133 Potassium 3.7 Chloride 102 Carbon Dioxide 26 Anion Gap 9 L BUN 25 H Creatinine 0.6 L Est GFR ( Amer) > 60 Est GFR (Non-Af Amer) > 60 Random Glucose 151 H Lactic Acid 1.3 Calcium 8.1 L Phosphorus 2.4 L Magnesium 2.0 Total Bilirubin 0.4 AST 31 ALT 23 Alkaline Phosphatase 44 Total Protein 6.0 Albumin 3.1 Globulin 2.9 Albumin/Globulin Ratio 1.1 Arterial Blood Potassium Urine Color Urine Appearance Urine pH Ur Specific [place] Urine Protein Urine Glucose (UA) Urine Ketones Urine Blood Urine Nitrate Urine Bilirubin Urine Urobilinogen Ur Leukocyte Esterase Urine RBC Urine WBC Ur Epithelial Cells Calcium Oxalate Crystal Amorphous Sediment Urine Bacteria Urine Other 12/11/18 12/12/18 12/12/18 22:49 06:10 06:10 WBC 3.8 L D RBC 3.71 Hgb 11.0 L Hct 33.3 L MCV 89.8 MCH 29.6 MCHC 33.0 RDW 13.3 Plt Count 155 MPV 9.7 Neut % (Auto) 79.5 H Lymph % (Auto) 8.8 L Randall % (Auto) 11.7 H Eos % (Auto) 0.0 L Baso % (Auto) 0.0 Lymph # (Auto) 0.3 L Randall # (Auto) 0.4 Eos # (Auto) 0.0 Baso # (Auto) 0.00 Absolute Neuts (auto) 3.00 pCO2 37 pO2 129.0 H HCO3 26.9 ABG pH 7.47 H ABG Total CO2 28.0 ABG O2 Saturation 99.7 H ABG Base Excess 3.2 H ABG Potassium 3.4 L Glucose 135 H Lactate 1.0 FiO2 28.0 Sodium 136.0 137 Potassium 4.3 Chloride 105.0 103 Carbon Dioxide 29 Anion Gap 9 L BUN 19 Creatinine 0.5 L Est GFR ( Amer) > 60 Est GFR (Non-Af Amer) > 60 Random Glucose 157 H Lactic Acid Calcium 8.4 Phosphorus 2.5 Magnesium 2.2 Total Bilirubin 0.4 AST 28 ALT 22 Alkaline Phosphatase 45 Total Protein 6.1 Albumin 3.2 Globulin 2.9 Albumin/Globulin Ratio 1.1 Arterial Blood Potassium 3.4 L Urine Color Urine Appearance Urine pH Ur Specific [place] Urine Protein Urine Glucose (UA) Urine Ketones Urine Blood Urine Nitrate Urine Bilirubin Urine Urobilinogen Ur Leukocyte Esterase Urine RBC Urine WBC Ur Epithelial Cells Calcium Oxalate Crystal Amorphous Sediment Urine Bacteria Urine Other 12/12/18 12:07 WBC RBC Hgb Hct MCV MCH MCHC RDW Plt Count MPV Neut % (Auto) Lymph % (Auto) Randall % (Auto) Eos % (Auto) Baso % (Auto) Lymph # (Auto) Randall # (Auto) Eos # (Auto) Baso # (Auto) Absolute Neuts (auto) pCO2 pO2 HCO3 ABG pH ABG Total CO2 ABG O2 Saturation ABG Base Excess ABG Potassium Glucose Lactate FiO2 Sodium Potassium Chloride Carbon Dioxide Anion Gap BUN Creatinine Est GFR ( Amer) Est GFR (Non-Af Amer) Random Glucose Lactic Acid Calcium Phosphorus Magnesium Total Bilirubin AST ALT Alkaline Phosphatase Total Protein Albumin Globulin Albumin/Globulin Ratio Arterial Blood Potassium Urine Color Dark yellow Urine Appearance Slight-cloudy Urine pH 5.5 Ur Specific [place] >= 1.030 Urine Protein 100 H Urine Glucose (UA) Negative Urine Ketones Trace H Urine Blood Trace-intact H Urine Nitrate Positive H Urine Bilirubin Small H Urine Urobilinogen 0.2 Ur Leukocyte Esterase Trace H Urine RBC 2 - 5 H Urine WBC 5 - 10 H Ur Epithelial Cells 4 - 5 Calcium Oxalate Crystal Mod Amorphous Sediment Small Urine Bacteria Many Urine Other Uyeast Attending/Attestation - Attestation I have personally seen and examined this patient.: Yes I have fully participated in the care of the patient.: Yes I have reviewed all pertinent clinical information: Yes
--- NOTE | 2018-12-12 11:28 | CP.PCM.PN ---
Subjective - Date & Time of Evaluation Date of Evaluation: 12/12/18 Time of Evaluation: 11:00 - Subjective Subjective: resting comfortably, NAD, denies abd pain, no N/V Objective - Vital Signs/Intake and Output Vital Signs (last 24 hours): Temp Pulse Resp BP Pulse Ox 98.2 F 79 20 170/93 H 97 12/12/18 08:44 12/12/18 09:33 12/12/18 08:44 12/12/18 09:33 12/12/18 08:44 Intake and Output: 12/12/18 12/12/18 06:59 18:59 Intake Total 3600 0 Output Total 900 600 Balance 2700 -600 - Medications Medications: Current Medications Acetaminophen (Tylenol 650 Mg Supp) 650 mg RC Q6H PRN PRN Reason: Fever >100.4 F Last Admin: 12/11/18 23:49 Dose: 650 mg Benzocaine/Menthol (Cepacol Sore Throat) 1 christopher MT Q2H PRN PRN Reason: Sore Throat Fentanyl (Fentanyl) 25 mcg IV Q5M PRN PRN Reason: Pain, moderate (4-7) Last Admin: 12/11/18 12:17 Dose: 25 mcg Heparin Sodium (Porcine) (Heparin) 5,000 units SC Q8 KELECHI; Protocol Last Admin: 12/12/18 05:52 Dose: 5,000 units Metronidazole (Flagyl) 500 mg in 100 mls @ 100 mls/hr IVPB Q8 KELECHI; Protocol Last Admin: 12/12/18 05:52 Dose: 100 mls/hr Sodium Chloride (Sodium Chloride 0.9%) 1,000 mls @ 150 mls/hr IV .Q6H40M KELECHI Last Admin: 12/11/18 05:46 Dose: 150 mls/hr Labetalol HCl (Trandate) 5 mg IV Q5MIN PRN PRN Reason: Systolic Blood Pressure Last Admin: 12/11/18 12:45 Dose: 5 mg Metoprolol Tartrate (Lopressor) 50 mg PO BID [facility] Last Admin: 12/12/18 09:33 Dose: 50 mg Morphine Sulfate (Morphine) 4 mg IVP Q4H PRN PRN Reason: Pain, moderate (4-7) Last Admin: 12/11/18 04:25 Dose: 4 mg Ondansetron HCl (Zofran Inj) 4 mg IVP Q4H PRN PRN Reason: Nausea/Vomiting - Labs Labs: 12/12/18 06:10 12/12/18 06:10 PT 11.4 SECONDS (9.4-12.5) 12/10/18 20:20 INR 1.03 12/10/18 20:20 APTT 28.2 Seconds (26.9-38.3) 12/10/18 20:20 - Respiratory Exam Respiratory Exam: Clear to Ausculation Bilateral - Cardiovascular Exam Cardiovascular Exam: REGULAR RHYTHM - GI/Abdominal Exam GI & Abdominal Exam: Soft, Hypoactive Bowel Sounds - Neurological Exam Neurological Exam: Alert, Awake - Skin Skin Exam: Dry, Warm Assessment and Plan - Assessment and Plan (Free Text) Assessment: 1. SBO due to incarcerated hernia s/p surgical relief of obstrauctio 2. HTN 3. Post-op fever - prob due to atelectasis Plan: monitor post-op for S&S of infection, metoprolol started for elevated bp, incentive spirometry,
[2018-12-12 12:12] LABS: PH,URINE 5.5 (4.7-8.0); URINE BILIRUBIN SMALL (NEGATIVE); URINE BLOOD TRACE-INTACT (NEGATIVE); URINE GLUCOSE (UA) NEGATIVE (NEGATIVE); URINE LEUKOCYTE ESTERASE TRACE Leu/uL (NEGATIVE); URINE PROTEIN 100 mg/dL (<30 mg/dL); URINE UROBILINOGEN 0.2 E.U./dL (<1 E.U./dL)
[2018-12-12 12:17] LABS: URINE APPEARANCE SLIGHT-CLOUDY (CLEAR); URINE COLOR DARK YELLOW (YELLOW)
[2018-12-12 12:27] LABS: URINE AMORPHOUS SEDIMENT SMALL /hpf; URINE BACTERIA MANY /hpf; URINE CALCIUM OXALATE CRYSTALS MOD /hpf
[2018-12-12] MEDS: Sodium Chloride 0.9% 1,000 ML IV SCH ×2 (13:39→14:03)
[2018-12-12] MEDS: Piperacillin/Tazobact 3.375 gm 100 ML IVPB SCH ×2 (14:20→22:19)
[2018-12-13] MEDS ORDERED: Sodium Chloride 0.9% 1,000 ML IV SCH (00:41)
--- NOTE | 2018-12-13 03:26 | OP ---
PROCEDURE DATE: 12/11/2018 SURGEON: Kwan Fuentes MD COMMUNICATION TECHNICIAN: Tobi Laureano MD ANESTHESIA: General endotracheal. SOCIAL MEDIA PROJECT MANAGER: Juan Elizabeth DO, PGY-3 PREOPERATIVE DIAGNOSES: 1. Left incarcerated inguinal - femoral hernia. 2. Small bowel obstruction. 3. Hypertension. PREOPERATIVE DIAGNOSES: 1. (Left femoral hernia - incarcerated). 2. Small bowel obstruction. 3. Hypertension. PROCEDURE: 1. Left femoral herniorrhaphy with mesh. 2. Release of small bowel obstruction. OPERATIVE INDICATIONS: The patient is a 63-year-old female who has had a known left groin hernia for several years. She has been generally comfortable with reducing the hernia herself and has been unsuccessful for the past 48 hours in which the hernia became much more painful and she started vomiting and has become somewhat dehydrated and comes to the emergency room for urgent care. CAT scanning demonstrates a femoral hernia that is incarcerated with moderate amount of fluid in the incision and in the pelvis. The patient has been preoperatively evaluated, found to need urgent surgery and is resuscitated with significant fluid hydration (150 mL/hour - the patient weighed 101 pounds). The patient's initial hemoglobin and hematocrit were in the 15 range and with hydration drops of 13. The electrolytes were normal. 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 Risks, benefits and alternatives with their anticipated outcomes were discussed with the patient and she signed the informed consent. DESCRIPTION OF PROCEDURE: The patient was brought to the operating room, undergone time-out procedure, was identified by her wristband and was placed on the table in a supine manner. Following the induction of general anesthesia and the insertion of an endotracheal tube, the abdomen and groin were prepped with Hibiclens chlorhexidine preparation and the patient was aseptically draped. Because the bulging mass was seen on top of the inguinal canal and the patient was markedly distended and very asthenic, the intraperitoneal repair was elected to be delayed and an extraperitoneal direct approach (open) was elected at this point. An incision was made along the inguinal canal down to the femoral crease and hemostasis was contained with cautery and dissection was carried on down surrounding the hernia sac completely and freeing it up. Surprisingly, the hernia sac when freed drops down along the anterior thigh and apparently attempts to reduce it by direct compression failed to push the hernia through the tissues of the inguinal canal. The external oblique aponeurosis was opened under cautery dissection and hemostasis, and the hernia sac was completely elevated into the wound with meticulous electrocoagulating cautery dissection. The hernia sac was opened and a very large amount of clear yellow ascites was seen coming out and the Kendall suction tubing was inserted into the abdominal cavity and several hundred milliliters of ascites were removed. Culture of this fluid was taken. There was no odor or any evidence of any infection at this point. By opening the hernia sac further and examining the bowel trapped in the hernia sac, it was apparent that the bowel is pink, viable and has good normal motility. This bowel was now reduced into the abdominal cavity and further fluid was removed as well. The hernia sac was now transected at the peritoneal level after placing a PerFix plug into the defect and securing it with 2-0 pursestring Prolene suture. An additional closure above the same with TA-30 - 3.5 stapler was employed and the hernia sac was slightly transected and submitted to pathology in formalin. The inguinal laurie was now repaired using a continuous suture of 2-0 Prolene from the shelving portion of Poupart's ligament to the conjoint tendon. The first two sutures go down to the Conrad ligament closing the femoral canal and additional sutures were continued across the a shelving portion of Poupart's ligament avoiding the femoral vein directly below. The inguinal laurie was now covered with a portion of Marlex mesh that was secured to the surface to reinforce the transversalis fascia and 3-0 Polysorb sutures contained this in space. The area was now infiltrated with the Exparel as was the genitofemoral and L1-L2 nerve root at the anterior spine. The external oblique was closed with running 2-0 Polysorb suture and the subcutaneous and subcuticular closure with 3-0 Polysorb was employed and the skin was closed with the AutoSuture skin stapler. Further infiltration of the skin and subcutaneous tissues with the Exparel was employed. A dry dressing was applied and the patient was awakened, extubated and transported to the recovery room in a satisfactory condition. Sponge, instrument and suture count were verified as correct at the end of the procedure. Estimated blood loss during this procedure was less than 10-20 mL of blood. The surgical assistants were present throughout and were most helpful in the dissection and in the repair of this complex hernia. This dictation will be electronically signed without being read. Kwan Fuentes MD
[2018-12-13] MEDS: Piperacillin/Tazobact 3.375 gm 100 ML IVPB SCH ×3 (05:54→21:14)
[2018-12-13 06:50] LABS: HEMOGLOBIN 10.2 g/dL (12.0-16.0); MEAN CELL VOLUME 88.5 fl (80.0-105.0); MEAN CORPUSCULAR HGB CONC 33.9 g/dl (31.0-37.0); MEAN PLATELET VOLUME 9.7 fl (7.0-11.0); RBC 3.4 10^6/uL (3.5-6.1); RED CELL DISTRIBUTION WIDTH 13.3 % (11.5-14.5); WHITE BLOOD COUNT 6.6 10^3/uL (4.5-11.0)
[2018-12-13 07:12] LABS: BLOOD UREA NITROGEN 14 mg/dL (7-21); CALCIUM 7.8 mg/dL (8.4-10.5); GFR NON-AFRICAN AMERICAN > 60
[2018-12-13] MEDS ORDERED: TraMADol/Apap 37.5/325 mg Tab PO PRN (07:37)
[2018-12-13] MEDS ORDERED: Simethicone 80 mg Chewtab PO PRN (07:41)
--- NOTE | 2018-12-13 08:08 | CP.PCM.PN ---
Subjective - Date & Time of Evaluation Date of Evaluation: 12/13/18 Time of Evaluation: 06:40 - Subjective Subjective: Patient seen and examined. No acute events over night. Tmax 99.9. Reports passing flatus. Denies nausea/vomiting, BM. Ambulating. Objective - Vital Signs/Intake and Output Vital Signs (last 24 hours): Temp Pulse Resp BP Pulse Ox 97.9 F 76 20 157/86 H 94 L 12/12/18 17:15 12/12/18 17:17 12/12/18 17:15 12/12/18 17:17 12/12/18 17:15 Intake and Output: 12/13/18 12/13/18 06:59 18:59 Intake Total 1345 Output Total 400 Balance 945 - Medications Medications: Current Medications Benzocaine/Menthol (Cepacol Sore Throat) 1 christopher MT Q2H PRN PRN Reason: Sore Throat Heparin Sodium (Porcine) (Heparin) 5,000 units SC Q8 [facility]; Protocol Last Admin: 12/13/18 05:55 Dose: 5,000 units Piperacillin Sod/Tazobactam Sod (Zosyn 3.375 In Ns 100ml) 100 mls @ 25 mls/hr IVPB Q8 [facility]; Protocol Stop: 12/21/18 14:01 Last Admin: 12/13/18 05:54 Dose: 25 mls/hr Labetalol HCl (Trandate) 5 mg IV Q5MIN PRN PRN Reason: Systolic Blood Pressure Last Admin: 12/11/18 12:45 Dose: 5 mg Metoprolol Tartrate (Lopressor) 50 mg PO BID [facility] Last Admin: 12/12/18 17:17 Dose: 50 mg Ondansetron HCl (Zofran Inj) 4 mg IVP Q4H PRN PRN Reason: Nausea/Vomiting Simethicone (Mylicon Chew Tab) 80 mg PO PCHS PRN PRN Reason: GI distress Tramadol/Acetaminophen (Ultracet 37.5/325 Mg) 1 tab PO Q6H PRN PRN Reason: Pain, moderate (4-7) - Labs Labs: 12/13/18 06:30 12/13/18 06:30 PT 11.4 SECONDS (9.4-12.5) 12/10/18 20:20 INR 1.03 12/10/18 20:20 APTT 28.2 Seconds (26.9-38.3) 12/10/18 20:20 - Constitutional Appears: No Acute Distress - Head Exam Head Exam: NORMOCEPHALIC - Eye Exam Eye Exam: EOMI, Normal appearance - ENT Exam ENT Exam: Mucous Membranes Moist - Respiratory Exam Respiratory Exam: NORMAL BREATHING PATTERN - Cardiovascular Exam Cardiovascular Exam: +S1, +S2 - GI/Abdominal Exam GI & Abdominal Exam: Soft. absent: Firm, Guarding, Rigid - Neurological Exam Neurological Exam: Alert, Awake, Oriented x3 - Skin Skin Exam: Dry, Intact, Warm Assessment and Plan - Assessment and Plan (Free Text) Assessment: 63F with incarcerated left femoral hernia s/p open femoral hernia repair with mesh POD 2 Plan: -Heart healthy diet -ABx per ID - DVT ppx - PO anaglesics prn -Tylenol prn fever>100.4F -Encourage ambulation -further recs per Dr. Alfredo Paiz PGY3
--- NOTE | 2018-12-13 09:27 | CP.PCM.PN ---
Subjective - Date & Time of Evaluation Date of Evaluation: 12/13/18 Time of Evaluation: 09:00 - Subjective Subjective: resting comfortably, NAD, tolerating solid food, passing flattus, denies abd pain, no N/V Objective - Vital Signs/Intake and Output Vital Signs (last 24 hours): Temp Pulse Resp BP Pulse Ox 98.6 F 73 20 154/88 H 95 12/13/18 09:03 12/13/18 09:03 12/13/18 09:03 12/13/18 09:03 12/13/18 09:03 Intake and Output: 12/13/18 12/13/18 06:59 18:59 Intake Total 1345 Output Total 400 Balance 945 - Medications Medications: Current Medications Benzocaine/Menthol (Cepacol Sore Throat) 1 christopher MT Q2H PRN PRN Reason: Sore Throat Heparin Sodium (Porcine) (Heparin) 5,000 units SC Q8 [facility]; Protocol Last Admin: 12/13/18 05:55 Dose: 5,000 units Piperacillin Sod/Tazobactam Sod (Zosyn 3.375 In Ns 100ml) 100 mls @ 25 mls/hr IVPB Q8 [facility]; Protocol Stop: 12/21/18 14:01 Last Admin: 12/13/18 05:54 Dose: 25 mls/hr Labetalol HCl (Trandate) 5 mg IV Q5MIN PRN PRN Reason: Systolic Blood Pressure Last Admin: 12/11/18 12:45 Dose: 5 mg Losartan Potassium (Cozaar) 50 mg PO DAILY [facility] Ondansetron HCl (Zofran Inj) 4 mg IVP Q4H PRN PRN Reason: Nausea/Vomiting Simethicone (Mylicon Chew Tab) 80 mg PO PCHS PRN PRN Reason: GI distress Tramadol/Acetaminophen (Ultracet 37.5/325 Mg) 1 tab PO Q6H PRN PRN Reason: Pain, moderate (4-7) - Labs Labs: 12/13/18 06:30 12/13/18 06:30 PT 11.4 SECONDS (9.4-12.5) 12/10/18 20:20 INR 1.03 12/10/18 20:20 APTT 28.2 Seconds (26.9-38.3) 03/18/19 20:20 - Respiratory Exam Respiratory Exam: NORMAL BREATHING PATTERN - Cardiovascular Exam Cardiovascular Exam: REGULAR RHYTHM - GI/Abdominal Exam GI & Abdominal Exam: Soft, Normal Bowel Sounds - Extremities Exam Extremities Exam: Normal Inspection - Neurological Exam Neurological Exam: Alert, Awake - Skin Skin Exam: Dry, Warm Assessment and Plan (1) SBO (small bowel obstruction) Status: Acute (2) HTN (hypertension) Status: Chronic - Assessment and Plan (Free Text) Plan: continue post-op care, DC metoprolol, start Losartan 50 mg qd for elevated bp
--- NOTE | 2018-12-13 10:07 | RAD ---
Date of service: 12/13/2018 HISTORY: fevers COMPARISON: No prior. FINDINGS: LUNGS: Minimal atelectasis at the right lung base PLEURA: No significant pleural effusion identified, no pneumothorax apparent. CARDIOVASCULAR: Aortic calcification and tortuosity Normal cardiac size. No pulmonary vascular congestion. OSSEOUS STRUCTURES: No significant abnormalities. VISUALIZED UPPER ABDOMEN: Normal. OTHER FINDINGS: None. IMPRESSION: No active disease.
[2018-12-13 12:52] LABS: HEPATITIS B SURFACE AG Negative (NEGATIVE)
[2018-12-13 13:07] LABS: HEPATITIS A IGM NEGATIVE (NEGATIVE); HEPATITIS B CORE AB NEGATIVE (NEGATIVE)
[2018-12-13 13:09] LABS: HEPATITIS C ANTIBODY NEGATIVE (NEGATIVE)
--- NOTE | 2018-12-13 15:44 | CP.PCM.PN ---
<David Erickson - Last Filed: 12/13/18 15:31> Subjective - Date & Time of Evaluation Date of Evaluation: 12/13/18 Time of Evaluation: 09:15 - Subjective Subjective: David Erickson D.O. PGY-3, Internal Medicine Resident, Infectious Disease Progress Note 63-year-old female with no significant past medical history presented for complaints of nausea, vomiting, difficulty with defecation for 2 days. Patient was found to have an incarcerated left femoral hernia and was taking the operating room on 12/11. Infectious disease consultation was requested for fevers overnight as high as 102.3. Patient was seen and examined at bedside. States feeling much better. Passing gas and had very small BM. Tolerating PO. No acute complaints. Objective - Vital Signs/Intake and Output Vital Signs (last 24 hours): Temp Pulse Resp BP Pulse Ox 98.6 F 73 20 154/88 H 95 12/13/18 09:03 12/13/18 09:56 12/13/18 09:03 12/13/18 09:56 12/13/18 09:03 Intake and Output: 12/13/18 12/13/18 06:59 18:59 Intake Total 1345 Output Total 400 Balance 945 - Medications Medications: Current Medications Benzocaine/Menthol (Cepacol Sore Throat) 1 christopher MT Q2H PRN PRN Reason: Sore Throat Heparin Sodium (Porcine) (Heparin) 5,000 units SC Q8 [facility]; Protocol Last Admin: 12/13/18 14:05 Dose: 5,000 units Piperacillin Sod/Tazobactam Sod (Zosyn 3.375 In Ns 100ml) 100 mls @ 25 mls/hr IVPB Q8 [facility]; Protocol Stop: 12/21/18 14:01 Last Admin: 12/13/18 14:06 Dose: 25 mls/hr Labetalol HCl (Trandate) 5 mg IV Q5MIN PRN PRN Reason: Systolic Blood Pressure Last Admin: 12/11/18 12:45 Dose: 5 mg Losartan Potassium (Cozaar) 50 mg PO DAILY [facility] Last Admin: 12/13/18 09:56 Dose: 50 mg Ondansetron HCl (Zofran Inj) 4 mg IVP Q4H PRN PRN Reason: Nausea/Vomiting Simethicone (Mylicon Chew Tab) 80 mg PO PCHS PRN PRN Reason: GI distress Last Admin: 12/13/18 14:15 Dose: 80 mg Tramadol/Acetaminophen (Ultracet 37.5/325 Mg) 1 tab PO Q6H PRN PRN Reason: Pain, moderate (4-7) - Labs Labs: 12/13/18 06:30 12/13/18 06:30 PT 11.4 SECONDS (9.4-12.5) 12/10/18 20:20 INR 1.03 12/10/18 20:20 APTT 28.2 Seconds (26.9-38.3) 12/10/18 20:20 - Constitutional Appears: No Acute Distress, pleasant female - Head Exam Head Exam: NORMOCEPHALIC - Eye Exam Eye Exam: absent: Scleral icterus - ENT Exam ENT Exam: Mucous Membranes Dry - Neck Exam Neck exam: Positive for: Normal Inspection - Respiratory Exam Respiratory Exam: absent: Rales, Rhonchi, Wheezes - Cardiovascular Exam Cardiovascular Exam: +S1, +S2 - GI/Abdominal Exam GI & Abdominal Exam: Soft. absent: Tenderness - Extremities Exam Extremities exam: Negative for: calf tenderness, pedal edema - Neurological Exam Neurological exam: Alert, Oriented x3 - Skin Skin Exam: Dry, Warm Assessment and Plan - Assessment and Plan (Free Text) Assessment: 63-year-old walker no significant past medical history presented for complaints of nausea, vomiting, difficulty with defecation for 2 days. Patient was found to have an incarcerated left femoral hernia and was taking the operating room on 12/11. Infectious disease consultation was requested for fevers overnight as high as 102.3. Plan: Sepsis from urinary source Incarcerated inguinal hernia s/p surgery Anorexia nervosa After extensive discussion, patient reveals a lifelong mcnamara with anorexia nervosa which could contribute to her leukopenia earlier in the admission BCx negative 2/2 day 1 Previous BCx negative 09/25 day 2 Abd Cx negative Afebrile 24 hrs Continue on empiric zosyn day 2 We will follow with you Patient was seen and examined and case will be discussed with attending physician Thank you for the pleasure participating in the care of this interesting patient <Jr Castañeda - Last Filed: 12/13/18 17:10> Objective - Vital Signs/Intake and Output Vital Signs (last 24 hours): Temp Pulse Resp BP Pulse Ox 98.6 F 73 20 154/88 H 95 12/13/18 09:03 12/13/18 09:56 12/13/18 09:03 12/13/18 09:56 12/13/18 09:03 Intake and Output: 12/13/18 12/13/18 06:59 18:59 Intake Total 1345 Output Total 400 Balance 945 - Medications Medications: Current Medications Benzocaine/Menthol (Cepacol Sore Throat) 1 christopher MT Q2H PRN PRN Reason: Sore Throat Heparin Sodium (Porcine) (Heparin) 5,000 units SC Q8 [facility]; Protocol Last Admin: 12/13/18 14:05 Dose: 5,000 units Piperacillin Sod/Tazobactam Sod (Zosyn 3.375 In Ns 100ml) 100 mls @ 25 mls/hr IVPB Q8 [facility]; Protocol Stop: 12/21/18 14:01 Last Admin: 12/13/18 14:06 Dose: 25 mls/hr Labetalol HCl (Trandate) 5 mg IV Q5MIN PRN PRN Reason: Systolic Blood Pressure Last Admin: 12/11/18 12:45 Dose: 5 mg Losartan Potassium (Cozaar) 50 mg PO DAILY [facility] Last Admin: 12/13/18 09:56 Dose: 50 mg Ondansetron HCl (Zofran Inj) 4 mg IVP Q4H PRN PRN Reason: Nausea/Vomiting Simethicone (Mylicon Chew Tab) 80 mg PO PCHS PRN PRN Reason: GI distress Last Admin: 12/13/18 14:15 Dose: 80 mg Tramadol/Acetaminophen (Ultracet 37.5/325 Mg) 1 tab PO Q6H PRN PRN Reason: Pain, moderate (4-7) - Labs Labs: 12/13/18 06:30 12/13/18 06:30 PT 11.4 SECONDS (9.4-12.5) 12/10/18 20:20 INR 1.03 12/10/18 20:20 APTT 28.2 Seconds (26.9-38.3) 12/10/18 20:20 Attending/Attestation - Attestation I have personally seen and examined this patient.: Yes I have fully participated in the care of the patient.: Yes I have reviewed all pertinent clinical information, including history, physical exam and plan: Yes
[2018-12-14] MEDS: Piperacillin/Tazobact 3.375 gm 100 ML IVPB SCH (05:31)
--- NOTE | 2018-12-14 08:39 | CP.PCM.PN ---
Subjective - Date & Time of Evaluation Date of Evaluation: 12/14/18 Time of Evaluation: 08:36 - Subjective Subjective: Satish Polk PGY1 Progress Note for Dr. Fuentes Pt was examined at bedside this morning. She has no complaints today, denying a bdominal pain, fever, chills, nausea, vomiting, diarrhea. Objective - Vital Signs/Intake and Output Vital Signs (last 24 hours): Temp Pulse Resp BP Pulse Ox 98.6 F 73 20 154/88 H 95 12/13/18 09:03 12/13/18 09:56 12/13/18 09:03 12/13/18 09:56 12/13/18 09:03 Intake and Output: 12/14/18 12/14/18 06:59 18:59 Intake Total 200 Balance 200 - Medications Medications: Current Medications Benzocaine/Menthol (Cepacol Sore Throat) 1 christopher MT Q2H PRN PRN Reason: Sore Throat Heparin Sodium (Porcine) (Heparin) 5,000 units SC Q8 [facility]; Protocol Last Admin: 12/14/18 05:27 Dose: 5,000 units Piperacillin Sod/Tazobactam Sod (Zosyn 3.375 In Ns 100ml) 100 mls @ 25 mls/hr IVPB Q8 [facility]; Protocol Stop: 12/21/18 14:01 Last Admin: 12/14/18 05:31 Dose: 25 mls/hr Labetalol HCl (Trandate) 5 mg IV Q5MIN PRN PRN Reason: Systolic Blood Pressure Last Admin: 12/11/18 12:45 Dose: 5 mg Losartan Potassium (Cozaar) 50 mg PO DAILY [facility] Last Admin: 12/13/18 09:56 Dose: 50 mg Ondansetron HCl (Zofran Inj) 4 mg IVP Q4H PRN PRN Reason: Nausea/Vomiting Simethicone (Mylicon Chew Tab) 80 mg PO PCHS PRN PRN Reason: GI distress Last Admin: 12/13/18 14:15 Dose: 80 mg Tramadol/Acetaminophen (Ultracet 37.5/325 Mg) 1 tab PO Q6H PRN PRN Reason: Pain, moderate (4-7) - Labs Labs: 12/13/18 06:30 12/13/18 06:30 PT 11.4 SECONDS (9.4-12.5) 12/10/18 20:20 INR 1.03 12/10/18 20:20 APTT 28.2 Seconds (26.9-38.3) 12/10/18 20:20 - Constitutional Appears: Well, No Acute Distress - Head Exam Head Exam: ATRAUMATIC, NORMOCEPHALIC - Eye Exam Eye Exam: Normal appearance - ENT Exam ENT Exam: Mucous Membranes Moist - Respiratory Exam Respiratory Exam: Clear to Ausculation Bilateral, NORMAL BREATHING PATTERN. abs ent: Decreased Breath Sounds, Rales, Rhonchi, Wheezes - Cardiovascular Exam Cardiovascular Exam: REGULAR RHYTHM, +S1, +S2. absent: Gallop, Rubs, Murmur - GI/Abdominal Exam GI & Abdominal Exam: Soft, Normal Bowel Sounds. absent: Distended, Tenderness Additional comments: LLQ incision site clean, dry, intact - Back Exam Back Exam: NORMAL INSPECTION - Neurological Exam Neurological Exam: Alert, Awake, Oriented x3 - Psychiatric Exam Psychiatric exam: Normal Affect, Normal Mood - Skin Skin Exam: Normal Color Assessment and Plan - Assessment and Plan (Free Text) Assessment: 63F with incarcerated left femoral hernia s/p open femoral hernia repair with mesh POD 3 Plan: - d/c today - ABx per ID - DVT ppx - pain control PRN - Tylenol prn fever>100.4F - Encourage ambulation - further recs per Dr. Fuentes
[2018-12-14 09:27] VITALS: BP 153/92; PULSE 80; RESP 16; TEMP 98.9; O2SAT 98
--- NOTE | 2018-12-14 11:24 | CP.PCM.PCO ---
Physician Communication Note - Physician Communication Note Physician Communication Note: OK D/C Home:Ultracet/Losartan
--- NOTE | 2018-12-14 13:59 | CP.PCM.PN ---
<David Erickson - Last Filed: 12/14/18 13:54> Subjective - Date & Time of Evaluation Date of Evaluation: 12/14/18 Time of Evaluation: 08:00 - Subjective Subjective: David Erickson D.O. PGY-3, Internal Medicine Resident, Infectious Disease Progress Note 63-year-old female with no significant past medical history presented for complaints of nausea, vomiting, difficulty with defecation for 2 days. Patient was found to have an incarcerated left femoral hernia and was taking the operating room on 12/11. Infectious disease consultation was requested for fevers overnight as high as 102.3. Patient was seen and examined at bedside. Significantly improved. No acute complaints. Objective - Vital Signs/Intake and Output Vital Signs (last 24 hours): Temp Pulse Resp BP Pulse Ox 98.9 F 80 16 153/92 H 98 12/14/18 06:00 12/14/18 09:50 12/14/18 06:00 12/14/18 09:50 12/14/18 06:00 Intake and Output: 12/14/18 12/14/18 06:59 18:59 Intake Total 200 Balance 200 - Labs Labs: 12/13/18 06:30 12/13/18 06:30 PT 11.4 SECONDS (9.4-12.5) 12/10/18 20:20 INR 1.03 12/10/18 20:20 APTT 28.2 Seconds (26.9-38.3) 12/10/18 20:20 - Constitutional Appears: No Acute Distress, pleasant female - Head Exam Head Exam: NORMOCEPHALIC - Eye Exam Eye Exam: absent: Scleral icterus - ENT Exam ENT Exam: Mucous Membranes Dry - Neck Exam Neck exam: Positive for: Normal Inspection - Respiratory Exam Respiratory Exam: absent: Rales, Rhonchi, Wheezes - Cardiovascular Exam Cardiovascular Exam: +S1, +S2 - GI/Abdominal Exam GI & Abdominal Exam: Soft. absent: Tenderness - Extremities Exam Extremities exam: Negative for: calf tenderness, pedal edema - Neurological Exam Neurological exam: Alert, Oriented x3 - Skin Skin Exam: Dry, Warm Assessment and Plan - Assessment and Plan (Free Text) Assessment: 63-year-old walker no significant past medical history presented for complaints of nausea, vomiting, difficulty with defecation for 2 days. Patient was found to have an incarcerated left femoral hernia and was taking the operating room on 12/11. Infectious disease consultation was requested for fevers overnight as high as 102.3. Plan: Sepsis from urinary source Incarcerated inguinal hernia s/p surgery Anorexia nervosa Continue on empiric zosyn day 3 BCxs have all been negative Abd cx also negative Clinically much improved Encouraged PO hydration Will follow with you Patient was seen and examined and case will be discussed with attending physician Thank you for the pleasure participating in the care of this interesting patient <Jr Castañeda - Last Filed: 12/14/18 21:58> Objective - Vital Signs/Intake and Output Vital Signs (last 24 hours): Temp Pulse Resp BP Pulse Ox 98.9 F 80 16 153/92 H 98 12/14/18 06:00 12/14/18 09:50 12/14/18 06:00 12/14/18 09:50 12/14/18 06:00 - Labs Labs: 12/13/18 06:30 12/13/18 06:30 PT 11.4 SECONDS (9.4-12.5) 12/10/18 20:20 INR 1.03 12/10/18 20:20 APTT 28.2 Seconds (26.9-38.3) 12/10/18 20:20 Attending/Attestation - Attestation I have personally seen and examined this patient.: Yes I have fully participated in the care of the patient.: Yes I have reviewed all pertinent clinical information, including history, physical exam and plan: Yes
--- NOTE | 2018-12-14 16:24 | PN ---
DATE: 12/14/2018 SUBJECTIVE: The patient seen earlier this morning in room 377, bed 1. No fevers, no chills. No nausea, no vomiting. No chest pain. PHYSICAL EXAMINATION: VITAL SIGNS: On exam, temperature is 98, blood pressure is 150/90, respiratory of 18. HEENT: Examination of HEENT is unremarkable. NECK: Supple. LUNGS: Have decreased breath sounds. HEART: Normal S1, S2. ABDOMEN: Soft, nontender. LABORATORY DATA: Laboratory examination reveals a white count of 6.6, hemoglobin of 10, platelets of 125. Chemistries reveals a BUN of 14, creatinine 0.5. Urinalysis is noted and serology is noted. Microbiology reveals the patient to have blood cultures are no growth. ASSESSMENT AND PLAN: A 63-year-old female seen earlier this morning in room 377, bed 1, who was initially admitted with nausea and vomiting and found to have an incarcerated left femoral hernia, was taken to the OR on 12/11/2018. Infectious Disease consultation requested because of fever of 102. #1 is urosepsis with possible urine as the source and with blood cultures negative, was on Zosyn day #3 and abdominal culture is negative. The patient is afebrile, doing well. Nares are negative. Urine cultures are pending. Dr. Davenport's note is reviewed from yesterday. Jr Castañeda MD
--- NOTE | 2018-12-15 05:29 | DS ---
HOSPITAL COURSE: The patient is a 63-year-old female admitted through the emergency department on 12/10/2018 with an small bowel obstruction due to inguinal hernia, now was incarcerated. The patient was seen in consultation by Dr. Fuentes. The patient underwent surgery without complications and is medically stable for discharge at the present time. The patient's hospital course was complicated by mild hypertension and she was started on losartan 50 mg daily. At the present time, she has no complaints. No abdominal pain. No nausea. No vomiting. No diarrhea. No melena. No bright red blood per rectum. PHYSICAL EXAMINATION: VITAL SIGNS: Blood pressure 153/92, temperature 98.9, pulse 80, and respiratory rate 16. LUNGS: Clear. HEART: Regular rate and rhythm. ABDOMEN: Soft and nontender. Bowel sounds are normoactive. EXTREMITIES: Without cyanosis, clubbing or edema. NEUROLOGIC: The patient is awake and oriented x3 without focal sensory or motor deficits. SKIN: Warm and dry. IMPRESSION: 1. Incarcerated inguinal hernia. 2. Hypertension. PLAN: The patient will be discharged to home today on the following medications; losartan 100 mg p.o. daily and prescription for Ultracet was given by Dr. Fuentes for pain p.r.n. The patient will be maintained on a heart-healthy diet. Activities ad libitum. She will be followed up as an outpatient in the office within next 1-2 weeks. DANIEL Montague MD
== END 2018-12-14 13:27 | disposition home or self-care (01) | DRG 351 ==
LOC: ED 20:05 → ERH 21:36 → 3RSO 12-11 00:41
PROVIDERS: ADMIT Internal Medicine; ATTEND Internal Medicine
PROC: 0YU80JZ Supplement Left Femoral Region with Synthetic Substitute, Open Approach (ICD-10-PCS; principal; 2018-12-11 12:15)
DX: K41.30 Unilateral femoral hernia, with obstruction, without gangrene, not specified as recurrent (principal); F50.00 Anorexia nervosa, unspecified; Z68.1 Body mass index [BMI] 19.9 or less, adult; J98.11 Atelectasis; R50.82 Postprocedural fever; E87.8 Other disorders of electrolyte and fluid balance, not elsewhere classified; I10 Essential (primary) hypertension

== ENCOUNTER 2018-12-18 13:44 | Inpatient (IN) | payer OTHER ==
[2018-12-18 13:44] VITALS: BMI 18.8
--- NOTE | 2018-12-18 14:05 | ED PDOC ---
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 Patient recently had an incarcerated hernia repair [address] Fuentes. Patient reports she's been feeling gassy and took Gas-x medication with no relief. Patient reports she feels distended and admits to decrease appetite. Patient denies any fever, chills, chest pain, shortness of breath, urinary symptoms, back pain, neck pain, headache, dizziness, or any other complaints. PMD: Dr. Fitzgerald Time/Duration: Other (2 days) Symptom Onset: Gradual Symptom Course: Unchanged Activities at Onset: Light Context: Home Past Medical History - Provider Review Nursing Documentation Reviewed: Yes - Infectious Disease Hx of Infectious Diseases: None - Cardiac Hx Cardiac Disorders: Yes Hx Hypertension: Yes (no meds hx) - Pulmonary Hx Respiratory Disorders: No - Neurological Hx Neurological Disorder: No - HEENT Hx HEENT Disorder: No - Renal Hx Renal Disorder: No - Endocrine/Metabolic Hx Endocrine Disorders: No - Hematological/Oncological Hx Blood Disorders: No - Integumentary Hx Dermatological Disorder: No - Musculoskeletal/Rheumatological Hx Musculoskeletal Disorders: No - Gastrointestinal Hx Gastrointestinal Disorders: No - Genitourinary/Gynecological Hx Genitourinary Disorders: No - Psychiatric Hx Psychophysiologic Disorder: No Hx Substance Use: No - Anesthesia Hx Anesthesia: No Family/Social History - Physician Review Nursing Documentation Reviewed: Yes Family/Social History: No Known Family HX Smoking Status: Never Smoked Hx Alcohol Use: No Hx Substance Use: No Allergies/Home Meds Allergies/Adverse Reactions: Allergies Penicillins Allergy (Verified 12/18/18 14:18) RASH Review of Systems - Physician Review All systems were reviewed & negative as marked: Yes - Review of Systems Constitutional: absent: Fevers, Other (chills) Respiratory: absent: SOB, Cough Cardiovascular: absent: Chest Pain Gastrointestinal: Abdominal Pain, Diarrhea, Nausea, Vomiting, Appetite Changes, Other (gassy and distended) Musculoskeletal: absent: Back Pain, Neck Pain Neurological: absent: Headache, Dizziness Physical Exam Vital Signs Reviewed: Yes Temperature: Afebrile Blood Pressure: Normal Pulse: Tachycardic Respiratory Rate: Normal Appearance: Positive for: Well-Appearing, Non-Toxic, Comfortable Pain Distress: None Mental Status: Positive for: Alert and Oriented X 3 - Systems Exam Head: Present: Atraumatic, Normocephalic Pupils: Present: PERRL Extroacular Muscles: Present: EOMI Conjunctiva: Present: Normal Mouth: Present: Dry (mild) Neck: Present: Normal Range of Motion Respiratory/Chest: Present: Clear to Auscultation, Good Air Exchange. No: Respiratory Distress, Accessory Muscle Use Cardiovascular: Present: Regular Rate and Rhythm, Normal S1, S2. No: Murmurs Abdomen: Present: Tenderness (diffusely), Distention, Scars (surgical scar with stapels in the LLQ), Other (hyperactive bowel sounds). No: Peritoneal Signs Back: Present: Normal Inspection Upper Extremity: Present: Normal Inspection. No: Cyanosis, Edema Lower Extremity: Present: Normal Inspection. No: Edema Neurological: Present: GCS=15, CN II-XII Intact, Speech Normal Skin: Present: Warm, Dry, Normal Color. No: Rashes Psychiatric: Present: Alert, Oriented x 3, Normal Insight, Normal Concentration Medical Decision Making ED Course and Treatment: 12/18/18 14:04 Impression: 63 year old female presents complaining abdominal pain/distention, nausea, vomiting, and diarrhea that began 2 days ago. Patient recently had an incarcerated hernia repair 1 week ago. Plan: -- VBG -- CT Abd & Pelvis IV Contrast -- Labs -- Urine Culture -- Urinalysis -- Reassess and disposition Prior Visits: Notes and results from previous visits were reviewed. Progress Notes: 12/18/18 14:[address] Fuentes who recommends a CT Abd & pelvis IV contrast to be done. 12/18/18 16:[address] result from radiologist 12/18/18 17:[address] fitzgerald, who is aware and agrees with the plan, admitted patient to his service. 12/18/18 17:18 residential support specialist notified, spoke with Dr. Fuentes, who is aware and agrees with the plan. - Lab Interpretations I have reviewed the lab results: Yes - RAD Interpretation Site Supervising Technical Operator: Radiologist - Scribe Statement The provider has reviewed the documentation as recorded by the Scribe Alaa Harini Provider Diego Attestation: All medical record entries made by the Diego were at my direction and personally dictated by me. I have reviewed the chart and agree that the record accurately reflects my personal performance of the history, physical exam, medical decision making, and the department course for this patient. I have also personally directed, reviewed, and agree with the discharge instructions and disposition. Disposition/Present on Arrival - Present on Arrival Any Indicators Present on Arrival: No History of DVT/PE: No History of Uncontrolled Diabetes: No Urinary Catheter: No History Surgical Site Infection Following: None - Disposition Have Diagnosis and Disposition been Completed?: Yes Diagnosis: SBO (small bowel obstruction), Abdominal pain Disposition Time: 16:45 Condition: GUARDED
[2018-12-18] MEDS ORDERED: Morphine 2 mg/ml ISec IVP STA (15:12)
[2018-12-18] MEDS: Lactated Ringer's 1,000 ML IV SCH ×2 (15:28→22:22)
[2018-12-18 15:30] LABS: BASO # 0.03 K/mm3 (0.0-2.0); BASO % 0.4 % (0.0-3.0); EOS # 0.1 (0.0-0.7); EOS % 0.9 % (1.5-5.0); HEMOGLOBIN 11.5 g/dL (12.0-16.0); LYMPH # 1.4 (1.2-3.4); LYMPH % 17.4 % (22.0-35.0); MEAN CELL VOLUME 86.9 fl (80.0-105.0); MEAN CORPUSCULAR HEMOGLOBIN 30.2 pg (25.0-35.0); MEAN CORPUSCULAR HGB CONC 34.7 g/dl (31.0-37.0); MEAN PLATELET VOLUME 8.7 fl (7.0-11.0); MONO # 0.4 (0.1-0.6); MONO % 5.3 % (1.0-6.0); RBC 3.81 10^6/uL (3.5-6.1); WHITE BLOOD COUNT 7.9 10^3/uL (4.5-11.0)
[2018-12-18 15:31] LABS: VENOUS BLOOD GAS BASE EXCESS 4.7 mmol/L (0.0-2.0); VENOUS BLOOD GAS PO2 24 mm/Hg (30-55); VENOUS BLOOD PH 7.45 (7.32-7.43)
[2018-12-18 15:38] LABS: INR 1.16; PARTIAL THROMBOPLASTIN TIME 23.5 Seconds (26.9-38.3); PROTHROMBIN TIME 12.9 SECONDS (9.4-12.5)
[2018-12-18 15:47] LABS: ALB/GLOB RATIO 1.1 (1.1-1.8); ALBUMIN 3.1 g/dL (3.0-4.8); ALT/SGPT 34 U/L (7-56); AMYLASE 258 U/L (35-125); AST/SGOT 27 U/L (14-36); BLOOD UREA NITROGEN 25 mg/dL (7-21); CALCIUM 8.9 mg/dL (8.4-10.5); GFR NON-AFRICAN AMERICAN > 60; LIPASE 823 U/L (23-300)
[2018-12-18] MEDS ORDERED: Iohexol 350 MG/100 ML VIAL ONE (16:14)
--- NOTE | 2018-12-18 16:49 | CP.PCM.CON ---
<Satish Polk - Last Filed: 12/18/18 17:05> History of Present Illness - History of Present Illness History of Present Illness: Satish Bradfordjorge luiskatie PGY1 Consult note for Dr. Fuentes Pt is a 63yo F with no PMH presenting with abdominal pain for 3 days. She is s/p open femoral hernia repair with mesh for an incarcerated hernia on 12/11. She reports watery, non bloody diarrhea. She complains of gassy abdominal pain especially on the left side which she rates a 10/10. Pain is currently improving since receiving morphine. She reports associated nausea and non bloody, bilious vomiting. The last episode of vomiting and diarrhea was today. She denies fever, chills, numbness, tingling, sick contacts, chest pain, shortness of breath. PMH: none SxH: open femoral hernia repair with mesh on 12/11 SocH: denies tobacco, alcohol, and recreational drug use Allergies: PCN Review of Systems - Review of Systems Review of Systems: as per HPI Past Patient History - Infectious Disease Hx of Infectious Diseases: None - Past Social History Smoking Status: Never Smoked - CARDIAC Hx Cardiac Disorders: Yes Hx Hypertension: Yes (no meds hx) - PULMONARY Hx Respiratory Disorders: No - NEUROLOGICAL Hx Neurological Disorder: No - HEENT Hx HEENT Problems: No - RENAL Hx Chronic Kidney Disease: No - ENDOCRINE/METABOLIC Hx Endocrine Disorders: No - HEMATOLOGICAL/ONCOLOGICAL Hx Blood Disorders: No - INTEGUMENTARY Hx Dermatological Problems: No - MUSCULOSKELETAL/RHEUMATOLOGICAL Hx Musculoskeletal Disorders: No - GASTROINTESTINAL Hx Gastrointestinal Disorders: No - GENITOURINARY/GYNECOLOGICAL Hx Genitourinary Disorders: No - PSYCHIATRIC Hx Psychophysiologic Disorder: No Hx Substance Use: No - SURGICAL HISTORY Hx Surgeries: No - ANESTHESIA Hx Anesthesia: No Meds Allergies/Adverse Reactions: Allergies Allergy/AdvReac Type Severity Reaction Status Date / Time Penicillins Allergy RASH Verified 12/18/18 14:18 - Medications Medications: Current Medications Lactated Ringer's (Lactated Ringer's) 1,000 mls @ 125 mls/hr IV .Q8H [facility] Last Admin: 12/18/18 15:28 Dose: 125 mls/hr Physical Exam - Constitutional Appears: Well, No Acute Distress - Head Exam Head Exam: ATRAUMATIC, NORMOCEPHALIC - Eye Exam Eye Exam: EOMI, Normal appearance - ENT Exam ENT Exam: Mucous Membranes Dry - Respiratory Exam Respiratory Exam: NORMAL BREATHING PATTERN. absent: Respiratory Distress - GI/Abdominal Exam GI & Abdominal Exam: Normal Bowel Sounds, Soft, Tenderness. absent: Distended, Guarding, Rebound Additional comments: tenderness to deep palpation of LLQ L inguinal surgical incision site clean/dry/intact - Extremities Exam Extremities exam: Positive for: normal inspection - Back Exam Back exam: NORMAL INSPECTION - Neurological Exam Neurological exam: Alert, Oriented x3 - Psychiatric Exam Psychiatric exam: Normal Affect, Normal Mood - Skin Additional comments: diffuse blanching erythematous pin point papules on abdomen and chest Results - Vital Signs Recent Vital Signs: Last Vital Signs Temp 97.5 F L 12/18/18 13:44 Pulse 94 H 12/18/18 13:44 Resp 16 12/18/18 13:44 BP 149/65 12/18/18 13:44 Pulse Ox 96 12/18/18 13:44 - Labs Result Diagrams: 12/18/18 15:20 12/18/18 15:20 Labs: Laboratory Results - last 24 hr 12/18/18 12/18/18 12/18/18 15:00 15:20 15:20 WBC 7.9 RBC 3.81 Hgb 11.5 L Hct 33.1 L MCV 86.9 MCH 30.2 MCHC 34.7 RDW 13.0 Plt Count 297 MPV 8.7 Neut % (Auto) 76.0 H Lymph % (Auto) 17.4 L [place] % (Auto) 5.3 Eos % (Auto) 0.9 L Baso % (Auto) 0.4 Lymph # (Auto) 1.4 [place] # (Auto) 0.4 Eos # (Auto) 0.1 Baso # (Auto) 0.03 Absolute Neuts (auto) 6.02 PT 12.9 H INR 1.16 APTT 23.5 L pO2 24 L VBG pH 7.45 H VBG pCO2 42.0 VBG HCO3 29.2 H VBG Total CO2 30.5 H VBG O2 Sat (Calc) 42.6 VBG Base Excess 4.7 H VBG Potassium 3.7 Sodium 129.0 L Chloride 93.0 L Glucose 118 H Lactate 0.8 FiO2 21.0 Potassium Carbon Dioxide Anion Gap BUN Creatinine Est GFR ( Amer) Est GFR (Non-Af Amer) Random Glucose Calcium Magnesium Total Bilirubin AST ALT Alkaline Phosphatase Total Protein Albumin Globulin Albumin/Globulin Ratio Amylase Lipase Venous Blood Potassium 3.7 12/18/18 15:20 WBC RBC Hgb Hct MCV MCH MCHC RDW Plt Count MPV Neut % (Auto) Lymph % (Auto) Sau[place] % (Auto) Eos % (Auto) Baso % (Auto) Lymph # (Auto) [place] # (Auto) Eos # (Auto) Baso # (Auto) Absolute Neuts (auto) PT INR APTT pO2 VBG pH VBG pCO2 VBG HCO3 VBG Total CO2 VBG O2 Sat (Calc) VBG Base Excess VBG Potassium Sodium 129 L Chloride 94 L Glucose Lactate FiO2 Potassium 4.0 Carbon Dioxide 28 Anion Gap 11 BUN 25 H Creatinine 0.6 L Est GFR ( Amer) > 60 Est GFR (Non-Af Amer) > 60 Random Glucose 110 Calcium 8.9 Magnesium 1.9 Total Bilirubin 0.5 AST 27 ALT 34 Alkaline Phosphatase 58 Total Protein 6.0 Albumin 3.1 Globulin 2.9 Albumin/Globulin Ratio 1.1 Amylase 258 H Lipase 823 H Venous Blood Potassium Assessment & Plan - Assessment and Plan (Free Text) Assessment: 63yo F with no PMH presenting with abdominal pain for 3 days s/p open femoral hernia repair with mesh on 12/11. CT abdomen showing obstruction. Plan: - Small bowel obstruction appreciated on CT abdomen/pelvis - s/p open femoral hernia repair with mesh for incarcerated hernia on 12/11 - no evidence of recurrent hernia - elevated lipase and amylase - NG tube to be placed - IVF for dehydration - NPO further recommendations as per Dr. Fuentes <Kwan Fuentes - Last Filed: 12/18/18 21:02> Meds - Medications Medications: Current Medications Lactated Ringer's (Lactated Ringer's) 1,000 mls @ 125 mls/hr IV .Q8H [facility] Last Admin: 12/18/18 15:28 Dose: 125 mls/hr Ketorolac Tromethamine (Toradol) 15 mg IVP Q6 PRN PRN Reason: Pain, moderate (4-7) Ondansetron HCl (Zofran Inj) 4 mg IVP Q4H PRN PRN Reason: Nausea/Vomiting Results - Vital Signs Recent Vital Signs: Last Vital Signs Temp 98.4 F 12/18/18 18:41 Pulse 89 12/18/18 18:41 Resp 19 12/18/18 18:41 BP 149/97 H 12/18/18 18:41 Pulse Ox 95 12/18/18 18:41 - Labs Result Diagrams: 12/18/18 15:20 12/18/18 15:20 Labs: Laboratory Results - last 24 hr 12/18/18 12/18/18 12/18/18 15:00 15:20 15:20 WBC 7.9 RBC 3.81 Hgb 11.5 L Hct 33.1 L MCV 86.9 MCH 30.2 MCHC 34.7 RDW 13.0 Plt Count 297 MPV 8.7 Neut % (Auto) 76.0 H Lymph % (Auto) 17.4 L [place] % (Auto) 5.3 Eos % (Auto) 0.9 L Baso % (Auto) 0.4 Lymph # (Auto) 1.4 [place] # (Auto) 0.4 Eos # (Auto) 0.1 Baso # (Auto) 0.03 Absolute Neuts (auto) 6.02 PT 12.9 H INR 1.16 APTT 23.5 L pO2 24 L VBG pH 7.45 H VBG pCO2 42.0 VBG HCO3 29.2 H VBG Total CO2 30.5 H VBG O2 Sat (Calc) 42.6 VBG Base Excess 4.7 H VBG Potassium 3.7 Sodium 129.0 L Chloride 93.0 L Glucose 118 H Lactate 0.8 FiO2 21.0 Potassium Carbon Dioxide Anion Gap BUN Creatinine Est GFR ( Amer) Est GFR (Non-Af Amer) Random Glucose Calcium Magnesium Total Bilirubin AST ALT Alkaline Phosphatase Total Protein Albumin Globulin Albumin/Globulin Ratio Amylase Lipase Venous Blood Potassium 3.7 12/18/18 15:20 WBC RBC Hgb Hct MCV MCH MCHC RDW Plt Count MPV Neut % (Auto) Lymph % (Auto) Sauk % (Auto) Eos % (Auto) Baso % (Auto) Lymph # (Auto) Sau[place] # (Auto) Eos # (Auto) Baso # (Auto) Absolute Neuts (auto) PT INR APTT pO2 VBG pH VBG pCO2 VBG HCO3 VBG Total CO2 VBG O2 Sat (Calc) VBG Base Excess VBG Potassium Sodium 129 L Chloride 94 L Glucose Lactate FiO2 Potassium 4.0 Carbon Dioxide 28 Anion Gap 11 BUN 25 H Creatinine 0.6 L Est GFR ( Amer) > 60 Est GFR (Non-Af Amer) > 60 Random Glucose 110 Calcium 8.9 Magnesium 1.9 Total Bilirubin 0.5 AST 27 ALT 34 Alkaline Phosphatase 58 Total Protein 6.0 Albumin 3.1 Globulin 2.9 Albumin/Globulin Ratio 1.1 Amylase 258 H Lipase 823 H Venous Blood Potassium Assessment & Plan - Assessment and Plan (Free Text) Plan: Dx PSBO vs Ileus/Dehydration/HT Piter IV Rehydration(NS)/Ab/NGT decompression Plan reevaluation in am:Poss surgery This consultation done under my direct supervision Dara Fuentes MD FACS
--- NOTE | 2018-12-18 16:55 | CT ---
Date of service: 12/18/2018 PROCEDURE: CT Abdomen and Pelvis with contrast HISTORY: abd distension/pain - recent SBO COMPARISON: CT 12/10/2018 TECHNIQUE: Contrast dose: 100 cc of Omni 350 Radiation dose: Total exam DLP = 198.59 mGy-cm. This CT exam was performed using one or more of the following dose reduction techniques: Automated exposure control, adjustment of the mA and/or kV according to patient size, and/or use of iterative reconstruction technique. FINDINGS: LOWER THORAX: Unremarkable. LIVER: Unremarkable. No gross lesion or ductal dilatation. GALLBLADDER AND BILE DUCTS: Unremarkable. PANCREAS: Unremarkable. No gross lesion or ductal dilatation. SPLEEN: Unremarkable. ADRENALS: Unremarkable. No mass. KIDNEYS AND URETERS: Unremarkable. No hydronephrosis. No solid mass. VASCULATURE: Unremarkable. No aortic aneurysm. Aortic calcification. BOWEL: There is a pattern of severe small bowel obstruction that is similar to the preoperative study of 12/10/2018. Small bowel loops are dilated up to 4 cm in diameter. Surgical clips are seen in the left inguinal region. There is a 3.8 x 5.8 cm fluid collection in this area. There is no evidence of a recurrent hernia. Findings were discussed with Dr. Oneill at 4:40 p.m. APPENDIX: Normal appendix. PERITONEUM: There is a small volume of ascites. There is no evidence of pneumatosis or free air. LYMPH NODES: Unremarkable. No enlarged lymph nodes. BLADDER: Unremarkable. REPRODUCTIVE: Unremarkable. BONES: No acute fracture. OTHER FINDINGS: None. IMPRESSION: There is a pattern of severe small bowel obstruction that is similar to the preoperative study of 12/10/2018. Small bowel loops are dilated up to 4 cm in diameter. Surgical clips are seen in the left inguinal region. There is a 3.8 x 5.8 cm fluid collection in this area. There is no evidence of a recurrent hernia.
[2018-12-18] MEDS ORDERED: Vancomycin 1gm in NS 250ml 1 GM/250 ML BAG IVPB STA (17:10)
[2018-12-18] MEDS ORDERED: Meropenem IV 1 gm in NS 1 GM/50 ML BAG IVPB STA (17:10)
--- NOTE | 2018-12-18 21:06 | CP.PCM.PCO ---
Physician Communication Note - Physician Communication Note Physician Communication Note: PSBO vs Ileus/Rx NGT-IV/Reeval in am-Poss Surgery
[2018-12-18] MEDS ORDERED: Phenol Topical 1.4% Throat Spray (180 ml) MT PRN (23:21)
[2018-12-19] MEDS: Lactated Ringer's 1,000 ML IV SCH ×2 (04:59→07:07)
[2018-12-19 07:52] LABS: BASO # 0.02 K/mm3 (0.0-2.0); BASO % 0.3 % (0.0-3.0); EOS # 0.2 (0.0-0.7); EOS % 2.4 % (1.5-5.0); HEMOGLOBIN 10.3 g/dL (12.0-16.0); LYMPH # 0.8 (1.2-3.4); LYMPH % 11.7 % (22.0-35.0); MEAN CELL VOLUME 87.5 fl (80.0-105.0); MEAN CORPUSCULAR HEMOGLOBIN 29.9 pg (25.0-35.0); MEAN CORPUSCULAR HGB CONC 34.1 g/dl (31.0-37.0); MEAN PLATELET VOLUME 8.5 fl (7.0-11.0); MONO # 0.9 (0.1-0.6); MONO % 13.2 % (1.0-6.0); RBC 3.45 10^6/uL (3.5-6.1); RED CELL DISTRIBUTION WIDTH 12.9 % (11.5-14.5); WHITE BLOOD COUNT 6.7 10^3/uL (4.5-11.0)
[2018-12-19 08:01] LABS: INR 1.2; PARTIAL THROMBOPLASTIN TIME 24.6 Seconds (26.9-38.3); PROTHROMBIN TIME 13.6 SECONDS (9.4-12.5)
[2018-12-19 08:31] LABS: ALBUMIN 2.7 g/dL (3.0-4.8); ALT/SGPT 25 U/L (7-56); AST/SGOT 30 U/L (14-36); BLOOD UREA NITROGEN 19 mg/dL (7-21); CALCIUM 8.2 mg/dL (8.4-10.5); GFR NON-AFRICAN AMERICAN > 60
[2018-12-19] MEDS: Sodium Chloride 0.9% 1,000 ML IV SCH ×2 (08:35→21:17)
--- NOTE | 2018-12-19 09:25 | RAD ---
Date of service: 12/18/2018 HISTORY: s/p NGT placement COMPARISON: No prior. TECHNIQUE: 1 view obtained. FINDINGS: LUNGS: No active pulmonary disease. PLEURA: No significant pleural effusion identified, no pneumothorax apparent. CARDIOVASCULAR: No aortic atherosclerotic calcification present. Aortic tortuosity Normal cardiac size. No pulmonary vascular congestion. OSSEOUS STRUCTURES: No significant abnormalities. VISUALIZED UPPER ABDOMEN: Normal. OTHER FINDINGS: None. IMPRESSION: Nasogastric tube in satisfactory position
--- NOTE | 2018-12-19 10:13 | CARD ---
APPROVED REPORT Date of service: 12/18/2018 EKG Measurement Heart [id number] <Conclusion> Normal sinus rhythm Possible Left atrial enlargement Nonspecific T wave abnormality Somatic Tremors.
[2018-12-19 10:24] LABS: PH,URINE 6.5 (4.7-8.0); URINE BILIRUBIN NEGATIVE (NEGATIVE); URINE BLOOD NEGATIVE (NEGATIVE); URINE GLUCOSE (UA) NEGATIVE (NEGATIVE); URINE LEUKOCYTE ESTERASE NEGATIVE Leu/uL (NEGATIVE); URINE PROTEIN TRACE mg/dL (<30 mg/dL); URINE UROBILINOGEN 0.2 E.U./dL (<1 E.U./dL)
[2018-12-19 10:29] LABS: URINE APPEARANCE CLEAR (CLEAR); URINE COLOR YELLOW (YELLOW)
[2018-12-19 10:37] LABS: URINE BACTERIA MOD /hpf; URINE FINE GRANULAR CAST 0 - 2 /hpf; URINE HYALINE CAST 0 - 2 /hpf; URINE RBC 0 - 2 /hpf (0-2)
[2018-12-19] MEDS ORDERED: Propofol 10 mg/ml Inj (20 ML) ONE (10:56)
[2018-12-19] MEDS ORDERED: ePHEDrine 50 mg/ml Inj ONE (10:57)
[2018-12-19] MEDS ORDERED: Rocuronium 10 mg/ml (5 ml) ONE (10:57)
[2018-12-19] MEDS ORDERED: Ciprofloxacin 400mg/200ml D5W 400 MG/200 ML BAG IVPB ONE (11:11)
[2018-12-19] MEDS ORDERED: metroNIDAZOLE IV 500 mg/100 ml 500 MG/100 ML BAG ONE (11:11)
[2018-12-19] MEDS ORDERED: Bupivacaine Liposomal Inj 20 ml ONE (11:11)
[2018-12-19] MEDS ORDERED: Bupivacaine 0.5% 50 ML IJ ONE (11:11)
--- NOTE | 2018-12-19 11:17 | HP ---
DATE OF EXAM: 12/19/2018 HISTORY OF PRESENT ILLNESS: The patient is a 63-year-old female admitted through the emergency department with abdominal pain and distention, the patient reports nausea and vomiting with discomfort and some diarrhea over the past couple of days. There is no melena or bright red blood per rectum. The patient was recently admitted on 12/10/2018 with an incarcerated left inguinal hernia and underwent surgery on 12/11/[address] Fuentes. She is now admitted with CT scan showing recurrent small-bowel obstruction. PAST MEDICAL HISTORY: Includes hypertension. There is no history of heart disease. No history of diabetes mellitus or cancer. The patient has a history of hyponatremia with SIADH presumed secondary to SSRIs in the past. The patient also has a history of migraine, depression, and anemia in the past. PAST SURGICAL HISTORY: The patient has no significant past surgical history other than above. ALLERGIES: THE PATIENT REPORTS AN ALLERGY TO PENICILLIN. CURRENT MEDICATIONS: The patient is on no current medications. SOCIAL HISTORY: There is no history of tobacco or alcohol use. FAMILY HISTORY: Noncontributory. REVIEW OF SYSTEMS: The patient denies any chest pain, shortness of breath. There is no fever, no chills. No jaundice. PHYSICAL EXAMINATION: GENERAL: The patient is a well-developed thin female in no acute distress. VITAL SIGNS: Blood pressure 151/87, temperature 99.1, pulse 78, respiratory rate 18. HEENT: Head is normocephalic, atraumatic. Pupils equal, round, reactive to light. NECK: Supple. No thyromegaly. No carotid bruit. LUNGS: Clear. HEART: Regular rate and rhythm. ABDOMEN: Somewhat distended and diffusely tender with no guarding, no rebound. Bowel sounds are hypoactive. Surgical wounds showed no evidence of redness, erythema, or discharge. EXTREMITIES: Without cyanosis, clubbing, or edema. NEUROLOGIC: The patient is awake and oriented x3 without focal sensory or motor deficits. SKIN: Warm and dry. LABORATORY DATA: WBC 6.7, hemoglobin 10.3, hematocrit 30.2. Sodium 130, potassium 3.9, chloride 96, CO2 of 27, BUN 19, creatinine 0.5. Amylase was elevated 258, lipase elevated 823. Chest x-ray shows no active pulmonary disease. Nasogastric tube is intact. IMPRESSION: 1. Recurrent small-bowel obstruction status post surgery on 12/11/2018 for incarcerated left inguinal hernia. 2. Hypertension. 3. Hyponatremia probably secondary to dehydration. PLAN: 1 The patient is admitted to the medical-surgical floor. Surgical consultation Dr. Fuentes. The patient is receiving IV fluids . The patient is on empiric meropenem and has received vancomycin. DANIEL Montague MD
[2018-12-19] MEDS ORDERED: Glycopyrrolate 0.2 mg/ml (2ml vial) ONE (12:04)
[2018-12-19] MEDS ORDERED: Neostigmine Methylsulfate 3mg/3ml Syringe IV ONE (12:05)
--- NOTE | 2018-12-19 12:31 | PCM.SURG1 ---
Surgeon's Initial Post Op Note - Surgeon's Notes Surgeon: Dr. Fuentes Credentialing Manager: Bishop PGY3; Glenn PGY2; Isabelle MS3 Type of Anesthesia: General Endo, Local Anesthesia Administered By: Dr. Handy Pre-Operative Diagnosis: Small Bowel Obstruction Operative Findings: See operative report Post-Operative Diagnosis: Same Operation Performed: Exploratory Laparotomy; Relief of Small bowel obstruction Specimen/Specimens Removed: Peritoneal fluid Culture; Left groin seroma fluid and culture; Left femoral hernia plug mesh Estimated Blood Loss: EBL {In ML}: 10 Blood Products Given: N/A Drains Used: No Drains Post-Op Condition: Good Date of Surgery/Procedure: 12/19/18 Time of Surgery/Procedure: 12:31
[2018-12-19] MEDS ORDERED: HYDROmorphone 0.5 mg/0.5 ml ISec IVP PRN (12:36)
[2018-12-19] MEDS ORDERED: Lactated Ringer's 1,000 ML IV SCH (12:45)
[2018-12-19] MEDS: HYDROmorphone 0.5 mg/0.5 ml ISec IVP PRN (14:19)
[2018-12-20] MEDS: HYDROmorphone 0.5 mg/0.5 ml ISec IVP PRN ×2 (06:25→21:30)
[2018-12-20 08:16] LABS: ALB/GLOB RATIO 0.9 (1.1-1.8); ALBUMIN 2.7 g/dL (3.0-4.8); ALT/SGPT 35 U/L (7-56); AST/SGOT 34 U/L (14-36); BLOOD UREA NITROGEN 11 mg/dL (7-21); CALCIUM 7.9 mg/dL (8.4-10.5); GFR NON-AFRICAN AMERICAN > 60
[2018-12-20 08:22] LABS: BASO # 0.02 K/mm3 (0.0-2.0); BASO % 0.2 % (0.0-3.0); EOS # 0.1 (0.0-0.7); HEMOGLOBIN 10.8 g/dL (12.0-16.0); LYMPH # 0.8 (1.2-3.4); LYMPH % 7.1 % (22.0-35.0); MEAN CELL VOLUME 87.7 fl (80.0-105.0); MEAN CORPUSCULAR HEMOGLOBIN 30.1 pg (25.0-35.0); MEAN CORPUSCULAR HGB CONC 34.3 g/dl (31.0-37.0); MEAN PLATELET VOLUME 8.8 fl (7.0-11.0); MONO # 0.5 (0.1-0.6); MONO % 4.9 % (1.0-6.0); RBC 3.59 10^6/uL (3.5-6.1); RED CELL DISTRIBUTION WIDTH 12.8 % (11.5-14.5)
--- NOTE | 2018-12-20 09:25 | CP.PCM.PN ---
Subjective - Date & Time of Evaluation Date of Evaluation: 12/20/18 Time of Evaluation: 09:15 - Subjective Subjective: OOB ambulating, denies abd pain, no N/V Objective - Vital Signs/Intake and Output Vital Signs (last 24 hours): Temp Pulse Resp BP Pulse Ox 97.9 F 89 18 168/93 H 97 12/20/18 06:00 12/20/18 06:00 12/20/18 06:00 12/20/18 06:00 12/20/18 06:00 Intake and Output: 12/20/18 12/20/18 06:59 18:59 Output Total 1650 Balance -1650 - Medications Medications: Current Medications Heparin Sodium (Porcine) (Heparin) 5,000 units SC Q8 [facility]; Protocol Last Admin: 12/20/18 06:25 Dose: Not Given Hydromorphone HCl (Dilaudid) 0.25 mg IVP Q4H PRN PRN Reason: Pain, moderate (4-7) Last Admin: 12/20/18 06:25 Dose: 0.25 mg Sodium Chloride (Sodium Chloride 0.9%) 1,000 mls @ 125 mls/hr IV .Q8H [facility] Last Admin: 12/19/18 21:17 Dose: 125 mls/hr Ketorolac Tromethamine (Toradol) 15 mg IVP Q6 PRN PRN Reason: Pain, moderate (4-7) Last Admin: 12/19/18 21:12 Dose: 15 mg Losartan Potassium (Cozaar) 100 mg PO DAILY [facility] Last Admin: 12/19/18 09:51 Dose: 100 mg Ondansetron HCl (Zofran Inj) 4 mg IVP Q4H PRN PRN Reason: Nausea/Vomiting Pantoprazole Sodium (Protonix Inj) 40 mg IVP DAILY [facility] Last Admin: 12/19/18 14:16 Dose: 40 mg Phenol/Menthol (Phenaseptic 1.4% Throat [place]) 2 ml MT Q2H PRN PRN Reason: Sore Throat Last Admin: 12/18/18 23:50 Dose: 2 ml Simethicone (Mylicon Liq) 40 mg PO QID [facility] - Labs Labs: 12/20/18 07:30 12/20/18 07:30 PT 13.6 SECONDS (9.4-12.5) H 12/19/18 07:35 INR 1.20 12/19/18 07:35 APTT 24.6 Seconds (26.9-38.3) L 12/19/18 07:35 - Respiratory Exam Respiratory Exam: Clear to Ausculation Bilateral, NORMAL BREATHING PATTERN - Cardiovascular Exam Cardiovascular Exam: REGULAR RHYTHM - GI/Abdominal Exam GI & Abdominal Exam: Soft, Hypoactive Bowel Sounds - Extremities Exam Extremities Exam: Normal Inspection - Neurological Exam Neurological Exam: Alert, Awake, Normal Gait - Skin Skin Exam: Dry, Intact, Warm Assessment and Plan (1) SBO (small bowel obstruction) Status: Acute (2) Incarcerated hernia Status: Resolved (3) HTN (hypertension) Status: Chronic (4) Hyponatremia Status: Acute - Assessment and Plan (Free Text) Plan: continue post-op care, monitor lytes
[2018-12-20] MEDS: Simethicone 40 mg/0.6 ml Liquid (30 ml) PO SCH ×4 (10:04→21:36)
[2018-12-20] MEDS: Dextrose 5%/0.45% NS 1,000 ML IV SCH ×2 (10:06→21:26)
--- NOTE | 2018-12-20 10:22 | CP.PCM.PN ---
Subjective - Date & Time of Evaluation Date of Evaluation: 12/20/18 Time of Evaluation: 10:18 - Subjective Subjective: Satish Polk PGY1 Progress Note for Dr. Fuentes Pt was examined at bedside this morning. She reports continuation of her abdomi nal pain which is localized on the lower right side of her abdomen and radiates to the left side. She describes it as intermittent. She denies fever, nausea, or vomiting. She reports discomfort from the NG tube. Objective - Vital Signs/Intake and Output Vital Signs (last 24 hours): Temp Pulse Resp BP Pulse Ox 97.9 F 89 18 168/93 H 97 12/20/18 06:00 12/20/18 06:00 12/20/18 06:00 12/20/18 06:00 12/20/18 06:00 Intake and Output: 12/20/18 12/20/18 06:59 18:59 Output Total 1650 Balance -1650 - Medications Medications: Current Medications Heparin Sodium (Porcine) (Heparin) 5,000 units SC Q8 [facility]; Protocol Last Admin: 12/20/18 06:25 Dose: Not Given Hydromorphone HCl (Dilaudid) 0.25 mg IVP Q4H PRN PRN Reason: Pain, moderate (4-7) Last Admin: 12/20/18 06:25 Dose: 0.25 mg Dextrose/Sodium Chloride (Dextrose 5%/0.45% Ns 1000 Ml) 1,000 mls @ 125 mls/hr IV .Q8H [facility] Last Admin: 12/20/18 10:06 Dose: 125 mls/hr Ketorolac Tromethamine (Toradol) 15 mg IVP Q6 PRN PRN Reason: Pain, moderate (4-7) Last Admin: 12/19/18 21:12 Dose: 15 mg Losartan Potassium (Cozaar) 100 mg PO DAILY [facility] Last Admin: 12/20/18 10:04 Dose: 100 mg Ondansetron HCl (Zofran Inj) 4 mg IVP Q4H PRN PRN Reason: Nausea/Vomiting Pantoprazole Sodium (Protonix Inj) 40 mg IVP DAILY [facility] Last Admin: 12/19/18 14:16 Dose: 40 mg Phenol/Menthol (Phenaseptic 1.4% Throat [place]) 2 ml MT Q2H PRN PRN Reason: Sore Throat Last Admin: 12/18/18 23:50 Dose: 2 ml Simethicone (Mylicon Liq) 40 mg PO QID [facility] Last Admin: 12/20/18 10:04 Dose: 40 mg - Labs Labs: 12/20/18 07:30 12/20/18 07:30 PT 13.6 SECONDS (9.4-12.5) H 12/19/18 07:35 INR 1.20 12/19/18 07:35 APTT 24.6 Seconds (26.9-38.3) L 12/19/18 07:35 - Constitutional Appears: No Acute Distress, Chronically Ill - Head Exam Head Exam: ATRAUMATIC, NORMOCEPHALIC - Eye Exam Eye Exam: EOMI, Normal appearance - ENT Exam Additional comments: NG tube in place draining green/yellow fluid - Neck Exam Neck Exam: Normal Inspection - Respiratory Exam Respiratory Exam: NORMAL BREATHING PATTERN. absent: Respiratory Distress - GI/Abdominal Exam GI & Abdominal Exam: Soft, Tenderness. absent: Distended, Guarding Additional comments: tenderness to palpation of lower left quadrant - Extremities Exam Extremities Exam: Normal Inspection - Neurological Exam Neurological Exam: Alert, Awake, Oriented x3 - Psychiatric Exam Psychiatric exam: Normal Affect, Normal Mood Assessment and Plan - Assessment and Plan (Free Text) Assessment: 63yo F with no PMH presenting with abdominal pain for 3 days s/p open femoral hernia repair with mesh on 12/11. S/p ex lap with mesh removal and SBO relief on 12/19. Plan: - POD #1 ex lap with mesh removal and SBO relief - d/c NG tube - d/c ulrich - CLD - pain control PRN further recommendations as per Dr. Fuentes
[2018-12-21] MEDS: HYDROmorphone 0.5 mg/0.5 ml ISec IVP PRN (05:41)
[2018-12-21] MEDS: Dextrose 5%/0.45% NS 1,000 ML IV SCH (05:47)
[2018-12-21] MEDS ORDERED: HYDROmorphone 0.5 mg/0.5 ml ISec IVP PRN (07:39)
[2018-12-21 08:26] LABS: BASO # 0.07 K/mm3 (0.0-2.0); BASO % 0.8 % (0.0-3.0); EOS # 0.3 (0.0-0.7); EOS % 2.9 % (1.5-5.0); HEMOGLOBIN 10.5 g/dL (12.0-16.0); LYMPH # 0.8 (1.2-3.4); LYMPH % 8.3 % (22.0-35.0); MEAN CELL VOLUME 86.7 fl (80.0-105.0); MEAN CORPUSCULAR HEMOGLOBIN 30.3 pg (25.0-35.0); MEAN CORPUSCULAR HGB CONC 34.9 g/dl (31.0-37.0); MEAN PLATELET VOLUME 8.3 fl (7.0-11.0); MONO # 0.6 (0.1-0.6); MONO % 6.6 % (1.0-6.0); RBC 3.47 10^6/uL (3.5-6.1); RED CELL DISTRIBUTION WIDTH 12.7 % (11.5-14.5); WHITE BLOOD COUNT 9.1 10^3/uL (4.5-11.0)
[2018-12-21 08:44] LABS: AMYLASE 158 U/L (35-125); BLOOD UREA NITROGEN 5 mg/dL (7-21); CALCIUM 7.8 mg/dL (8.4-10.5); GFR NON-AFRICAN AMERICAN > 60; LIPASE 369 U/L (23-300)
--- NOTE | 2018-12-21 09:34 | CP.PCM.PN ---
Subjective - Date & Time of Evaluation Date of Evaluation: 12/21/18 Time of Evaluation: 09:32 - Subjective Subjective: Satish Polk PGY1 Progress Note for Dr. Fuentes Pt was examined at bedside this morning. She reports mild abdominal pain but th at she is able to tolerate liquids. She has no other complaints today. Objective - Vital Signs/Intake and Output Vital Signs (last 24 hours): Temp Pulse Resp BP Pulse Ox 98.2 F 89 18 150/84 98 12/21/18 07:54 12/21/18 07:54 12/21/18 07:54 12/21/18 07:54 12/21/18 07:54 - Medications Medications: Current Medications Heparin Sodium (Porcine) (Heparin) 5,000 units SC Q8 [facility]; Protocol Last Admin: 12/21/18 05:47 Dose: Not Given Hydromorphone HCl (Dilaudid) 0.25 mg IVP Q4H PRN PRN Reason: Pain, severe (8-10) Losartan Potassium (Cozaar) 100 mg PO DAILY [facility] Last Admin: 12/20/18 10:04 Dose: 100 mg Ondansetron HCl (Zofran Inj) 4 mg IVP Q4H PRN PRN Reason: Nausea/Vomiting Pantoprazole Sodium (Protonix Inj) 40 mg IVP DAILY [facility] Last Admin: 12/19/18 14:16 Dose: 40 mg Phenol/Menthol (Phenaseptic 1.4% Throat [place]) 2 ml MT Q2H PRN PRN Reason: Sore Throat Last Admin: 12/18/18 23:50 Dose: 2 ml Simethicone (Mylicon Liq) 40 mg PO QID [facility] Last Admin: 12/20/18 21:36 Dose: 40 mg Tramadol HCl (Ultram) 50 mg PO TID PRN PRN Reason: Pain, moderate (4-7) - Labs Labs: 12/21/18 08:00 12/21/18 08:00 PT 13.6 SECONDS (9.4-12.5) H 12/19/18 07:35 INR 1.20 12/19/18 07:35 APTT 24.6 Seconds (26.9-38.3) L 12/19/18 07:35 - Constitutional Appears: No Acute Distress, Chronically Ill - Head Exam Head Exam: ATRAUMATIC, NORMOCEPHALIC - Eye Exam Eye Exam: EOMI, Normal appearance - ENT Exam ENT Exam: Mucous Membranes Moist - Respiratory Exam Respiratory Exam: NORMAL BREATHING PATTERN. absent: Respiratory Distress - GI/Abdominal Exam GI & Abdominal Exam: Soft, Tenderness. absent: Distended, Guarding Additional comments: midline abdominal incision clean/dry/intact - Extremities Exam Extremities Exam: Normal Inspection - Neurological Exam Neurological Exam: Alert, Awake, Oriented x3 - Psychiatric Exam Psychiatric exam: Normal Affect, Normal Mood - Skin Skin Exam: Normal Color Assessment and Plan - Assessment and Plan (Free Text) Assessment: 63yo F with no PMH presenting with abdominal pain for 3 days s/p open femoral hernia repair with mesh on 12/11. S/p ex lap with mesh removal and SBO relief on 12/19. Plan: - POD #2 s/p ex lap with mesh removal and SBO relief - monitor hyponatremia - CLD - pain control PRN further recommendations as per Dr. Fuentes
[2018-12-21] MEDS: Simethicone 40 mg/0.6 ml Liquid (30 ml) PO SCH ×4 (10:00→21:54)
[2018-12-21] MEDS: Sodium Chloride 0.9% 1,000 ML IV SCH (10:02)
[2018-12-21] MEDS ORDERED: Potassium Chloride 40 mEq/30 ml LIQ UD PO ONE (10:59)
--- NOTE | 2018-12-21 16:13 | CP.PCM.PN ---
Subjective - Date & Time of Evaluation Date of Evaluation: 12/21/18 Time of Evaluation: 11:15 - Subjective Subjective: restung comfortably, NAD, denies abd pain, no N/V Objective - Vital Signs/Intake and Output Vital Signs (last 24 hours): Temp Pulse Resp BP Pulse Ox 97.6 F 83 18 157/96 H 99 12/21/18 14:00 12/21/18 14:00 12/21/18 14:00 12/21/18 14:00 12/21/18 14:00 Intake and Output: 12/21/18 12/21/18 06:59 18:59 Intake Total 260 Balance 260 - Medications Medications: Current Medications Heparin Sodium (Porcine) (Heparin) 5,000 units SC Q8 [facility]; Protocol Last Admin: 12/21/18 14:25 Dose: 5,000 units Hydromorphone HCl (Dilaudid) 0.25 mg IVP Q4H PRN PRN Reason: Pain, severe (8-10) Sodium Chloride (Sodium Chloride 0.9%) 1,000 mls @ 100 mls/hr IV .Q10H [facility] Last Admin: 12/21/18 10:02 Dose: 100 mls/hr Losartan Potassium (Cozaar) 100 mg PO DAILY [facility] Last Admin: 12/21/18 09:40 Dose: 100 mg Ondansetron HCl (Zofran Inj) 4 mg IVP Q4H PRN PRN Reason: Nausea/Vomiting Pantoprazole Sodium (Protonix Ec Tab) 40 mg PO 0600 [facility] Phenol/Menthol (Phenaseptic 1.4% Throat [place]) 2 ml MT Q2H PRN PRN Reason: Sore Throat Last Admin: 12/18/18 23:50 Dose: 2 ml Simethicone (Mylicon Liq) 40 mg PO QID [facility] Last Admin: 12/21/18 14:29 Dose: 40 mg Tramadol HCl (Ultram) 50 mg PO TID PRN PRN Reason: Pain, moderate (4-7) - Labs Labs: 12/21/18 08:00 12/21/18 08:00 PT 13.6 SECONDS (9.4-12.5) H 12/19/18 07:35 INR 1.20 12/19/18 07:35 APTT 24.6 Seconds (26.9-38.3) L 12/19/18 07:35 - Respiratory Exam Respiratory Exam: Clear to Ausculation Bilateral, NORMAL BREATHING PATTERN - Cardiovascular Exam Cardiovascular Exam: REGULAR RHYTHM - GI/Abdominal Exam GI & Abdominal Exam: Soft, Hypoactive Bowel Sounds - Extremities Exam Extremities Exam: Normal Inspection - Neurological Exam Neurological Exam: Alert, Awake, Normal Gait - Skin Skin Exam: Dry, Warm Assessment and Plan (1) SBO (small bowel obstruction) Status: Acute (2) HTN (hypertension) Status: Chronic (3) Hyponatremia Status: Acute - Assessment and Plan (Free Text) Plan: monitor lytes, surgical follow-up, SW for DC planning
--- NOTE | 2018-12-21 19:51 | PQF ---
PROVIDER RESPONSE TEXT: SBO due to adhesion at mesh site REVIEWER QUERY TEXT: Documentation Clarification Your help is requested in clarifying the following clinical documentation, if you can please further specify in the medical record and discharge summary. The patient's Clinical Indicators include: 12/20 s/p open femoral hernia repair with mesh on 12/11.S/p ex lap with mesh removal and SBO relief on 12/19. Query created by: Deena Werner on 12/21/2018 8:46 AM Electronically signed by: Kwan Fuentes MD 12/21/2018 7:47 PM
[2018-12-22] MEDS: Pantoprazole 40 mg EC Tab PO SCH (05:19)
[2018-12-22 08:04] LABS: BASO # 0.04 K/mm3 (0.0-2.0); BASO % 0.6 % (0.0-3.0); EOS # 0.2 (0.0-0.7); EOS % 3.3 % (1.5-5.0); HEMOGLOBIN 11.5 g/dL (12.0-16.0); LYMPH # 0.9 (1.2-3.4); LYMPH % 12.6 % (22.0-35.0); MEAN CELL VOLUME 87.8 fl (80.0-105.0); MEAN CORPUSCULAR HEMOGLOBIN 29.8 pg (25.0-35.0); MEAN CORPUSCULAR HGB CONC 33.9 g/dl (31.0-37.0); MEAN PLATELET VOLUME 8.6 fl (7.0-11.0); MONO # 0.4 (0.1-0.6); MONO % 5.9 % (1.0-6.0); RBC 3.86 10^6/uL (3.5-6.1); RED CELL DISTRIBUTION WIDTH 12.9 % (11.5-14.5); WHITE BLOOD COUNT 6.9 10^3/uL (4.5-11.0)
[2018-12-22 08:08] LABS: ALB/GLOB RATIO 1.1 (1.1-1.8); ALBUMIN 3.2 g/dL (3.0-4.8); ALT/SGPT 23 U/L (7-56); AST/SGOT 59 U/L (14-36); BLOOD UREA NITROGEN 5 mg/dL (7-21); CALCIUM 8.8 mg/dL (8.4-10.5); GFR NON-AFRICAN AMERICAN > 60
--- NOTE | 2018-12-22 10:06 | CP.PCM.PN ---
Subjective - Date & Time of Evaluation Date of Evaluation: 12/22/18 Time of Evaluation: 09:40 - Subjective Subjective: no BM, not passing gas yet, denies abd pain, no N/V Objective - Vital Signs/Intake and Output Vital Signs (last 24 hours): Temp Pulse Resp BP Pulse Ox 97.8 F 78 18 139/88 97 12/22/18 06:00 12/22/18 06:00 12/22/18 06:00 12/22/18 06:00 12/22/18 06:00 Intake and Output: 12/22/18 12/22/18 06:59 18:59 Intake Total 1140 Output Total 300 Balance 840 - Medications Medications: Current Medications Heparin Sodium (Porcine) (Heparin) 5,000 units SC Q8 [facility]; Protocol Last Admin: 12/22/18 05:19 Dose: 5,000 units Hydromorphone HCl (Dilaudid) 0.25 mg IVP Q4H PRN PRN Reason: Pain, severe (8-10) Sodium Chloride (Sodium Chloride 0.9%) 1,000 mls @ 100 mls/hr IV .Q10H [facility] Last Admin: 12/21/18 10:02 Dose: 100 mls/hr Losartan Potassium (Cozaar) 100 mg PO DAILY [facility] Last Admin: 12/21/18 09:40 Dose: 100 mg Ondansetron HCl (Zofran Inj) 4 mg IVP Q4H PRN PRN Reason: Nausea/Vomiting Pantoprazole Sodium (Protonix Ec Tab) 40 mg PO 0600 [facility] Last Admin: 12/22/18 05:19 Dose: 40 mg Phenol/Menthol (Phenaseptic 1.4% Throat [place]) 2 ml MT Q2H PRN PRN Reason: Sore Throat Last Admin: 12/18/18 23:50 Dose: 2 ml Simethicone (Mylicon Liq) 40 mg PO QID [facility] Last Admin: 12/21/18 21:54 Dose: 40 mg Tramadol HCl (Ultram) 50 mg PO TID PRN PRN Reason: Pain, moderate (4-7) Last Admin: 12/21/18 17:58 Dose: 50 mg - Labs Labs: 12/22/18 07:20 12/22/18 07:20 PT 13.6 SECONDS (9.4-12.5) H 12/19/18 07:35 INR 1.20 12/19/18 07:35 APTT 24.6 Seconds (26.9-38.3) L 12/19/18 07:35 - Respiratory Exam Respiratory Exam: Clear to Ausculation Bilateral, NORMAL BREATHING PATTERN - Cardiovascular Exam Cardiovascular Exam: REGULAR RHYTHM - GI/Abdominal Exam GI & Abdominal Exam: Soft, Normal Bowel Sounds - Extremities Exam Extremities Exam: Normal Inspection - Neurological Exam Neurological Exam: Alert, Awake - Skin Skin Exam: Dry, Warm Assessment and Plan (1) SBO (small bowel obstruction) Status: Acute (2) HTN (hypertension) Status: Chronic (3) Hyponatremia Status: Acute - Assessment and Plan (Free Text) Plan: continue post-op care, monitor lytes, Na+ improving
[2018-12-22] MEDS: Simethicone 40 mg/0.6 ml Liquid (30 ml) PO SCH ×4 (10:16→22:04)
--- NOTE | 2018-12-22 10:18 | CP.PCM.PN ---
Subjective - Date & Time of Evaluation Date of Evaluation: 12/22/18 Time of Evaluation: 06:35 - Subjective Subjective: Surgery Progress note. Dr. Fuentes Pt seen and examined at bedside. No acute events overnight. No N/V. Denies any flatus. Has been ambulating. No fevers or chills. Abdominal pain improved since yesterday. No new complaints. Objective - Vital Signs/Intake and Output Vital Signs (last 24 hours): Temp Pulse Resp BP Pulse Ox 97.8 F 78 18 139/88 97 12/22/18 06:00 12/22/18 06:00 12/22/18 06:00 12/22/18 06:00 12/22/18 06:00 Intake and Output: 12/22/18 12/22/18 06:59 18:59 Intake Total 1140 Output Total 300 Balance 840 - Medications Medications: Current Medications Heparin Sodium (Porcine) (Heparin) 5,000 units SC Q8 [facility]; Protocol Last Admin: 12/22/18 05:19 Dose: 5,000 units Hydromorphone HCl (Dilaudid) 0.25 mg IVP Q4H PRN PRN Reason: Pain, severe (8-10) Sodium Chloride (Sodium Chloride 0.9%) 1,000 mls @ 100 mls/hr IV .Q10H [facility] Last Admin: 12/21/18 10:02 Dose: 100 mls/hr Losartan Potassium (Cozaar) 100 mg PO DAILY [facility] Last Admin: 12/21/18 09:40 Dose: 100 mg Ondansetron HCl (Zofran Inj) 4 mg IVP Q4H PRN PRN Reason: Nausea/Vomiting Pantoprazole Sodium (Protonix Ec Tab) 40 mg PO 0600 [facility] Last Admin: 12/22/18 05:19 Dose: 40 mg Phenol/Menthol (Phenaseptic 1.4% Throat [place]) 2 ml MT Q2H PRN PRN Reason: Sore Throat Last Admin: 12/18/18 23:50 Dose: 2 ml Simethicone (Mylicon Liq) 40 mg PO QID [facility] Last Admin: 12/21/18 21:54 Dose: 40 mg Tramadol HCl (Ultram) 50 mg PO TID PRN PRN Reason: Pain, moderate (4-7) Last Admin: 12/21/18 17:58 Dose: 50 mg - Labs Labs: 12/22/18 07:20 12/22/18 07:20 PT 13.6 SECONDS (9.4-12.5) H 12/19/18 07:35 INR 1.20 12/19/18 07:35 APTT 24.6 Seconds (26.9-38.3) L 12/19/18 07:35 - Constitutional Appears: Well, Non-toxic, No Acute Distress - Head Exam Head Exam: ATRAUMATIC, NORMAL INSPECTION, NORMOCEPHALIC - Eye Exam Eye Exam: EOMI, Normal appearance. absent: Scleral icterus - ENT Exam ENT Exam: Mucous Membranes Moist - Respiratory Exam Respiratory Exam: NORMAL BREATHING PATTERN. absent: Accessory Muscle Use, Respiratory Distress - Cardiovascular Exam Cardiovascular Exam: absent: JVD - GI/Abdominal Exam GI & Abdominal Exam: Distended (Mild distention), Soft. absent: Firm, Guarding, Mass, Rebound Additional comments: Mild brian-incisional tenderness. Midline dressing intact with shaan. Dressing, clean, dry and intact - Extremities Exam Extremities Exam: Normal Inspection. absent: Calf Tenderness - Neurological Exam Neurological Exam: Alert, Awake, Oriented x3 - Psychiatric Exam Psychiatric exam: Normal Affect, Normal Mood - Skin Skin Exam: Dry, Intact, Normal Color, Warm Assessment and Plan - Assessment and Plan (Free Text) Assessment: 63yo F with SBO s/p open femoral hernia repair with mesh on 12/11. S/p ex lap with mesh removal and SBO relief on 12/19. Now with post-op ileus vs. constipation. -Abd XRay this morning with likely constipation Plan: - Continue Clears for now. Possible advance diet tonight - Dulcolax supp, Warm soap water enema if no relief by this evening - Pain control - Encourage Ambulation - Encourage IS use Further recs as per Dr. Alfredo Elizabeth PGY2 surgery
--- NOTE | 2018-12-22 11:21 | RAD ---
Date of service: 12/22/2018 HISTORY: post-op. r/o obstruction COMPARISON: None available. TECHNIQUE: Two views view obtained. FINDINGS: BOWEL: There is moderate dilatation of the colon. This could be due to ileus. The pattern of severe small bowel obstruction has improved postoperatively BONES: Normal. OTHER FINDINGS: None. IMPRESSION: There is moderate dilatation of the colon. This could be due to ileus. The pattern of severe small bowel obstruction has improved postoperatively
[2018-12-22] MEDS: Sodium Chloride 0.9% 1,000 ML IV SCH (20:10)
[2018-12-23] MEDS: Pantoprazole 40 mg EC Tab PO SCH (05:21)
[2018-12-23] MEDS: Sodium Chloride 0.9% 1,000 ML IV SCH (05:30)
--- NOTE | 2018-12-23 09:11 | CP.PCM.PN ---
Subjective - Date & Time of Evaluation Date of Evaluation: 12/23/18 Time of Evaluation: 06:40 - Subjective Subjective: Patient seen and examined. No acute events over night. Denies passing flatus or having BM. Ambulating. Objective - Vital Signs/Intake and Output Vital Signs (last 24 hours): Temp Pulse Resp BP Pulse Ox 98.3 F 86 18 158/95 H 96 12/23/18 06:00 12/23/18 06:00 12/23/18 06:00 12/23/18 06:00 12/23/18 06:00 Intake and Output: 12/23/18 12/23/18 06:59 18:59 Intake Total 420 Balance 420 - Medications Medications: Current Medications Bisacodyl (Dulcolax) 10 mg RC ONCE ONE Stop: 12/23/18 09:05 Heparin Sodium (Porcine) (Heparin) 5,000 units SC Q8 [facility]; Protocol Last Admin: 12/23/18 05:21 Dose: 5,000 units Hydromorphone HCl (Dilaudid) 0.25 mg IVP Q4H PRN PRN Reason: Pain, severe (8-10) Sodium Chloride (Sodium Chloride 0.9%) 1,000 mls @ 100 mls/hr IV .Q10H [facility] Last Admin: 12/23/18 05:30 Dose: 100 mls/hr Losartan Potassium (Cozaar) 100 mg PO DAILY [facility] Last Admin: 12/22/18 10:15 Dose: 100 mg Ondansetron HCl (Zofran Inj) 4 mg IVP Q4H PRN PRN Reason: Nausea/Vomiting Pantoprazole Sodium (Protonix Ec Tab) 40 mg PO 0600 [facility] Last Admin: 12/23/18 05:21 Dose: 40 mg Phenol/Menthol (Phenaseptic 1.4% Throat [place]) 2 ml MT Q2H PRN PRN Reason: Sore Throat Last Admin: 12/18/18 23:50 Dose: 2 ml Simethicone (Mylicon Liq) 40 mg PO QID [facility] Last Admin: 12/22/18 22:04 Dose: 40 mg Tramadol HCl (Ultram) 50 mg PO TID PRN PRN Reason: Pain, moderate (4-7) Last Admin: 12/21/18 17:58 Dose: 50 mg - Labs Labs: 12/22/18 07:20 12/22/18 07:20 PT 13.6 SECONDS (9.4-12.5) H 12/19/18 07:35 INR 1.20 12/19/18 07:35 APTT 24.6 Seconds (26.9-38.3) L 12/19/18 07:35 - Constitutional Appears: No Acute Distress - Head Exam Head Exam: NORMOCEPHALIC - Eye Exam Eye Exam: EOMI, Normal appearance - ENT Exam ENT Exam: Mucous Membranes Moist - Respiratory Exam Respiratory Exam: NORMAL BREATHING PATTERN - Cardiovascular Exam Cardiovascular Exam: +S1, +S2 - GI/Abdominal Exam GI & Abdominal Exam: Distended, Soft, Tenderness. absent: Firm, Guarding, Rigid - Neurological Exam Neurological Exam: Alert, Awake, Oriented x3 - Psychiatric Exam Psychiatric exam: Normal Mood - Skin Skin Exam: Dry, Intact, Warm Assessment and Plan - Assessment and Plan (Free Text) Assessment: 63yo F with SBO s/p open femoral hernia repair with mesh on 12/11. S/p ex lap with mesh removal and SBO relief on 12/19. Now with post-op ileus vs. constipation. Plan: - Continue CLD - Dulcolax supp x1 -CT Abd & Pel w/ PO contrast - Pain control - Encourage Ambulation - Encourage IS use Further recs as per Dr. Alfredo Cho PGY3
[2018-12-23] MEDS ORDERED: Iohexol 240 (50 ml) ONE (09:19)
[2018-12-23] MEDS ORDERED: Iohexol 350 MG/100 ML VIAL ONE (11:56)
--- NOTE | 2018-12-23 13:10 | CT ---
Date of service: 12/23/2018 PROCEDURE: CT Abdomen and Pelvis with contrast HISTORY: Evaluate bowel COMPARISON: 12/18/2018 TECHNIQUE: Contrast dose: 100 cc of Omni 350 Radiation dose: Total exam DLP = 238.61 mGy-cm. This CT exam was performed using one or more of the following dose reduction techniques: Automated exposure control, adjustment of the mA and/or kV according to patient size, and/or use of iterative reconstruction technique. FINDINGS: LOWER THORAX: Unremarkable. LIVER: Unremarkable. No gross lesion or ductal dilatation. GALLBLADDER AND BILE DUCTS: Unremarkable. PANCREAS: Unremarkable. No gross lesion or ductal dilatation. SPLEEN: Unremarkable. ADRENALS: Unremarkable. No mass. KIDNEYS AND URETERS: Unremarkable. No hydronephrosis. No solid mass. VASCULATURE: Unremarkable. No aortic aneurysm. No aortic atherosclerotic calcification or mural plaque present. BOWEL: The small bowel is no longer distended. Contrast is seen in the stomach and proximal small bowel. There is moderate distention of the colon. There is moderate constipation. This could represent a postoperative colonic ileus. There is a 3 x 5 cm fluid collection in the left inguinal region. There is no evidence of recurrent hernia APPENDIX: Normal appendix. PERITONEUM: There is a small amount of ascites. LYMPH NODES: Unremarkable. No enlarged lymph nodes. BLADDER: Unremarkable. REPRODUCTIVE: Unremarkable. BONES: No acute fracture. OTHER FINDINGS: None. IMPRESSION: The small bowel is no longer distended. Contrast is seen in the stomach and proximal small bowel. There is moderate distention of the colon. There is moderate constipation. This could represent a postoperative colonic ileus.
[2018-12-23] MEDS: Simethicone 40 mg/0.6 ml Liquid (30 ml) PO SCH ×4 (13:30→22:27)
--- NOTE | 2018-12-23 15:21 | CP.PCM.PN ---
Subjective - Date & Time of Evaluation Date of Evaluation: 12/23/18 Time of Evaluation: 11:20 - Subjective Subjective: OOB ambulating, NAD, passing flattus, no BM, denies abd pain Objective - Vital Signs/Intake and Output Vital Signs (last 24 hours): Temp Pulse Resp BP Pulse Ox 97.7 F 85 16 161/102 H 98 12/23/18 14:00 12/23/18 14:00 12/23/18 14:00 12/23/18 14:00 12/23/18 14:00 Intake and Output: 12/23/18 12/23/18 06:59 18:59 Intake Total 420 Balance 420 - Medications Medications: Current Medications Heparin Sodium (Porcine) (Heparin) 5,000 units SC Q8 [facility]; Protocol Last Admin: 12/23/18 05:21 Dose: 5,000 units Hydromorphone HCl (Dilaudid) 0.25 mg IVP Q4H PRN PRN Reason: Pain, severe (8-10) Sodium Chloride (Sodium Chloride 0.9%) 1,000 mls @ 100 mls/hr IV .Q10H [facility] Last Admin: 12/23/18 05:30 Dose: 100 mls/hr Losartan Potassium (Cozaar) 100 mg PO DAILY [facility] Last Admin: 12/23/18 09:57 Dose: 100 mg Ondansetron HCl (Zofran Inj) 4 mg IVP Q4H PRN PRN Reason: Nausea/Vomiting Pantoprazole Sodium (Protonix Ec Tab) 40 mg PO 0600 [facility] Last Admin: 12/23/18 05:21 Dose: 40 mg Phenol/Menthol (Phenaseptic 1.4% Throat [place]) 2 ml MT Q2H PRN PRN Reason: Sore Throat Last Admin: 12/18/18 23:50 Dose: 2 ml Simethicone (Mylicon Liq) 40 mg PO QID [facility] Last Admin: 12/23/18 13:30 Dose: Not Given Tramadol HCl (Ultram) 50 mg PO TID PRN PRN Reason: Pain, moderate (4-7) Last Admin: 12/21/18 17:58 Dose: 50 mg - Labs Labs: 12/22/18 07:20 12/22/18 07:20 PT 13.6 SECONDS (9.4-12.5) H 12/19/18 07:35 INR 1.20 12/19/18 07:35 APTT 24.6 Seconds (26.9-38.3) L 12/19/18 07:35 - Respiratory Exam Respiratory Exam: Clear to Ausculation Bilateral, NORMAL BREATHING PATTERN - GI/Abdominal Exam GI & Abdominal Exam: Firm, Soft, Hypoactive Bowel Sounds - Extremities Exam Extremities Exam: Normal Inspection - Neurological Exam Neurological Exam: Alert, Awake - Skin Skin Exam: Dry, Warm Assessment and Plan (1) SBO (small bowel obstruction) Status: Acute (2) HTN (hypertension) Status: Chronic (3) Hyponatremia Status: Acute - Assessment and Plan (Free Text) Plan: for CT abd today, continue post-op care, monitor gerard
[2018-12-24] MEDS: Pantoprazole 40 mg EC Tab PO SCH (06:16)
[2018-12-24] MEDS: Sodium Chloride 0.9% 1,000 ML IV SCH (09:09)
[2018-12-24] MEDS: Simethicone 40 mg/0.6 ml Liquid (30 ml) PO SCH ×2 (09:12→14:18)
[2018-12-24] MEDS ORDERED: Magnesium Citrate Oral SOL (300 ml) PO ONE (11:00)
--- NOTE | 2018-12-24 14:05 | CP.PCM.PN ---
Subjective - Date & Time of Evaluation Date of Evaluation: 12/24/18 Time of Evaluation: 14:02 - Subjective Subjective: Surgery Progress Note for Dr. Fuentes 63F seen and evaluated at bedside this morning. No acute events overnight. Patient passing gas, tolerating diet. Denies f/c, n/v/d, SOB, CP, or urinary symptoms. Objective - Vital Signs/Intake and Output Vital Signs (last 24 hours): Temp Pulse Resp BP Pulse Ox 99.4 F 91 H 18 134/80 97 12/24/18 06:00 12/24/18 09:07 12/24/18 06:00 12/24/18 09:07 12/24/18 06:00 Intake and Output: 12/24/18 12/24/18 06:59 18:59 Intake Total 700 Balance 700 - Medications Medications: Current Medications Amlodipine Besylate (Norvasc) 5 mg PO DAILY [facility] Last Admin: 12/24/18 09:07 Dose: 5 mg Heparin Sodium (Porcine) (Heparin) 5,000 units SC Q8 [facility]; Protocol Last Admin: 12/24/18 06:15 Dose: Not Given Hydromorphone HCl (Dilaudid) 0.25 mg IVP Q4H PRN PRN Reason: Pain, severe (8-10) Sodium Chloride (Sodium Chloride 0.9%) 1,000 mls @ 100 mls/hr IV .Q10H [facility] Last Admin: 12/24/18 09:09 Dose: 100 mls/hr Losartan Potassium (Cozaar) 100 mg PO DAILY [facility] Last Admin: 12/24/18 09:07 Dose: 100 mg Ondansetron HCl (Zofran Inj) 4 mg IVP Q4H PRN PRN Reason: Nausea/Vomiting Pantoprazole Sodium (Protonix Ec Tab) 40 mg PO 0600 [facility] Last Admin: 12/24/18 06:16 Dose: Not Given Phenol/Menthol (Phenaseptic 1.4% Throat [place]) 2 ml MT Q2H PRN PRN Reason: Sore Throat Last Admin: 12/18/18 23:50 Dose: 2 ml Simethicone (Mylicon Liq) 40 mg PO QID [facility] Last Admin: 12/24/18 09:12 Dose: Not Given Tramadol HCl (Ultram) 50 mg PO TID PRN PRN Reason: Pain, moderate (4-7) Last Admin: 12/21/18 17:58 Dose: 50 mg - Labs Labs: 12/22/18 07:20 12/22/18 07:20 PT 13.6 SECONDS (9.4-12.5) H 12/19/18 07:35 INR 1.20 12/19/18 07:35 APTT 24.6 Seconds (26.9-38.3) L 12/19/18 07:35 - Constitutional Appears: Well, Non-toxic, No Acute Distress - Head Exam Head Exam: ATRAUMATIC, NORMAL INSPECTION, NORMOCEPHALIC - Eye Exam Eye Exam: EOMI - ENT Exam ENT Exam: Mucous Membranes Moist - Respiratory Exam Respiratory Exam: Clear to Ausculation Bilateral, NORMAL BREATHING PATTERN. absent: Wheezes, Respiratory Distress - Cardiovascular Exam Cardiovascular Exam: REGULAR RHYTHM, +S1, +S2. absent: Murmur - GI/Abdominal Exam GI & Abdominal Exam: Soft, Normal Bowel Sounds. absent: Tenderness - Neurological Exam Neurological Exam: Alert, Awake, Oriented x3 - Psychiatric Exam Psychiatric exam: Normal Affect, Normal Mood - Skin Skin Exam: Dry, Intact, Normal Color, Warm Assessment and Plan - Assessment and Plan (Free Text) Assessment: 63F s/p open femoral hernia repair with mesh on 12/11. S/p ex lap with mesh removal and SBO relief on 12/19 complicated by post-op ileus Plan: Continue Regular diet Monitor diet tolerance and return of bowel function CTAP showed ileus - patient passing gas this morning and symptoms improving, will continue to monitor Antiemetics and analgesics as needed Continue ambulation Encourage IS use D/w Dr. Alfredo Trammell PGY1
--- NOTE | 2018-12-24 14:44 | OP ---
PROCEDURE DATE: 12/19/2018 SURGEON: Kwan Fuentes MD. INFORMATION ASSURANCE SPECIALIST: Juan Elizabeth DO, PGY-3 SECOND BARREL W[employer]ER MACHINE: Moshe Alas DO, PGY-3 SUPERVISOR [employer] HATCHERY: Dr. Peña. ANESTHESIA: General endotracheal. - Exparel. PREOPERATIVE DIAGNOSIS: Recurrent small bowel obstruction. POSTOPERATIVE DIAGNOSIS: Recurrent small bowel obstruction secondary to adhesion. PROCEDURES: 1. Laparotomy 2. Release of small bowel. 3. Removal of foreign body - mesh. OPERATIVE INDICATIONS: The patient is a 63-year-old female who underwent femoral herniorrhaphy with small bowel obstruction slightly over 1 week ago. She was moving her bowels, had been discharged and returned to the emergency room with a distended abdomen and the inability to pass gas or move her bowels for 1 day. CAT scanning demonstrated small bowel obstruction and fluid in the inguinal region without evidence of further hernia. The clinical impression at that time was adhesive obstruction of unknown origin and the patient was rehydrated, loaded with antibiotics, prepared for surgery and risks, benefits and alternatives fully explained and the patient agrees to the emergency laparotomy. OPERATIVE NOTE: The patient was brought to the operating room, undergoes time-out procedure, was identified by her wristband and is placed on the table in a supine manner. Following the induction of general anesthesia, an endotracheal tube was inserted and a Lan catheter placed and sequential compression devices were applied to the lower extremities for venous thromboembolism prophylaxis. Midline incision is made after preparation of the skin and aseptic draping and the abdomen is entered and clear ascites encountered in the peritoneal cavity which is cultured and removed by suction. Exploration demonstrates small bowel dilatation adherent to the left inguinal femoral region and 2 small wings of the PerFix plug are seen extending through the peritoneum, into the abdominal cavity. This apparently is the source of the adhesive obstruction and is easily freed and the bowel brought out into the abdominal cavity examined and found to be perfectly normal and viable. The PerFix plug is then pulled into the peritoneal cavity and under tension transected and removed and submitted to pathology for gross examination. The peritoneum is now closed with 2-0 Prolene pursestring suture. The remainder of the abdomen is normal, it is lavaged with saline until the return is clear and the bowel returned to the peritoneal cavity. The abdomen is closed in a mass closure layer of double-stranded #2 PDS and the fascia and skin are now infiltrated with the Exparel - bupivacaine combination for long-acting analgesia. Subcutaneous space is lavaged with saline, aspirated, hemostasis is confirmed and the space closed with 3-0 Polysorb continuous closure and the skin with the AutoSuture skin stapler. Aspiration of the inguinal femoral region is employed at this point, demonstrating approximately 10 mL of serous fluid which is submitted for culture as well. An Aquacel Ag dressing is placed on the incision. The patient is awakened, extubated and transported to the recovery room in a satisfactory condition. Sponge, instrument and suture count were verified as correct at the end of the procedure. Estimated blood loss during the procedure was minimal. The surgical assistants were present throughout the entire procedure and were very essential in the dissection and in the exploration of this patient. Kwan Fuentes MD
--- NOTE | 2018-12-24 15:53 | CP.PCM.PN ---
Subjective - Date & Time of Evaluation Date of Evaluation: 12/24/18 Time of Evaluation: 03:35 - Subjective Subjective: resting comfortably, denies abd pain, passing flattus,OOB ambulating Objective - Vital Signs/Intake and Output Vital Signs (last 24 hours): Temp Pulse Resp BP Pulse Ox 99.4 F 91 H 18 134/80 97 12/24/18 06:00 12/24/18 09:07 12/24/18 06:00 12/24/18 09:07 12/24/18 06:00 Intake and Output: 12/24/18 12/24/18 06:59 18:59 Intake Total 700 Balance 700 - Medications Medications: Current Medications Amlodipine Besylate (Norvasc) 5 mg PO DAILY [facility] Last Admin: 12/24/18 09:07 Dose: 5 mg Losartan Potassium (Cozaar) 100 mg PO DAILY [facility] Last Admin: 12/24/18 09:07 Dose: 100 mg Pantoprazole Sodium (Protonix Ec Tab) 40 mg PO 0600 [facility] Last Admin: 12/24/18 06:16 Dose: Not Given Phenol/Menthol (Phenaseptic 1.4% Throat [place]) 2 ml MT Q2H PRN PRN Reason: Sore Throat Last Admin: 12/18/18 23:50 Dose: 2 ml Simethicone (Mylicon Liq) 40 mg PO QID [facility] Last Admin: 12/24/18 14:18 Dose: Not Given Tramadol HCl (Ultram) 50 mg PO TID PRN PRN Reason: Pain, moderate (4-7) Last Admin: 12/21/18 17:58 Dose: 50 mg - Labs Labs: 12/22/18 07:20 12/22/18 07:20 PT 13.6 SECONDS (9.4-12.5) H 12/19/18 07:35 INR 1.20 12/19/18 07:35 APTT 24.6 Seconds (26.9-38.3) L 12/19/18 07:35 - Respiratory Exam Respiratory Exam: Clear to Ausculation Bilateral, NORMAL BREATHING PATTERN - Cardiovascular Exam Cardiovascular Exam: REGULAR RHYTHM - GI/Abdominal Exam GI & Abdominal Exam: Soft, Normal Bowel Sounds - Extremities Exam Extremities Exam: Normal Inspection - Neurological Exam Neurological Exam: Alert, Awake - Skin Skin Exam: Dry, Warm Assessment and Plan (1) SBO (small bowel obstruction) Status: Resolved (2) HTN (hypertension) Status: Chronic (3) Hyponatremia Status: Acute - Assessment and Plan (Free Text) Plan: continue post-op care, check labs in am
[2018-12-25] MEDS: Simethicone 40 mg/0.6 ml Liquid (30 ml) PO SCH ×4 (04:55→21:07)
[2018-12-25] MEDS: Pantoprazole 40 mg EC Tab PO SCH (05:19)
[2018-12-25 07:15] LABS: BASO # 0.01 K/mm3 (0.0-2.0); BASO % 0.2 % (0.0-3.0); EOS # 0.1 (0.0-0.7); EOS % 2.2 % (1.5-5.0); HEMOGLOBIN 10.9 g/dL (12.0-16.0); LYMPH # 0.7 (1.2-3.4); LYMPH % 15.1 % (22.0-35.0); MEAN CELL VOLUME 88.3 fl (80.0-105.0); MEAN CORPUSCULAR HEMOGLOBIN 29.6 pg (25.0-35.0); MEAN CORPUSCULAR HGB CONC 33.5 g/dl (31.0-37.0); MEAN PLATELET VOLUME 8.4 fl (7.0-11.0); MONO # 0.3 (0.1-0.6); MONO % 6.6 % (1.0-6.0); RBC 3.68 10^6/uL (3.5-6.1); RED CELL DISTRIBUTION WIDTH 12.9 % (11.5-14.5); WHITE BLOOD COUNT 4.6 10^3/uL (4.5-11.0)
[2018-12-25 07:48] VITALS: RESP 18
[2018-12-25 08:04] LABS: ALB/GLOB RATIO 1.1 (1.1-1.8); ALBUMIN 3.4 g/dL (3.0-4.8); ALT/SGPT 34 U/L (7-56); AST/SGOT 41 U/L (14-36); BLOOD UREA NITROGEN 8 mg/dL (7-21); CALCIUM 8.7 mg/dL (8.4-10.5); GFR NON-AFRICAN AMERICAN > 60
[2018-12-25] MEDS ORDERED: Potassium Chloride 20 mEq ER Tab PO ONE ×2 (08:44→09:43)
--- NOTE | 2018-12-25 08:48 | CP.PCM.PN ---
Subjective - Date & Time of Evaluation Date of Evaluation: 12/25/18 Time of Evaluation: 08:44 - Subjective Subjective: Surgery Progress Note for Dr. Fuentes 63F seen and evaluated at bedside this morning. No acute events overnight. Patient is passing gas and had 2 small bowel movements with mucous. She endorses hyperactive bowel sounds. Patient is ambulating without difficulty and tolerated regular diet. Denies f/c, n/v/d, SOB, CP, or urinary symptoms. Objective - Vital Signs/Intake and Output Vital Signs (last 24 hours): Temp Pulse Resp BP Pulse Ox 98.2 F 83 18 131/82 98 12/25/18 07:30 12/25/18 07:30 12/25/18 07:30 12/25/18 07:30 12/25/18 07:30 Intake and Output: 12/25/18 12/25/18 06:59 18:59 Intake Total 540 Output Total 900 Balance -360 - Medications Medications: Current Medications Amlodipine Besylate (Norvasc) 5 mg PO DAILY [facility] Last Admin: 12/24/18 09:07 Dose: 5 mg Losartan Potassium (Cozaar) 100 mg PO DAILY [facility] Last Admin: 12/24/18 09:07 Dose: 100 mg Pantoprazole Sodium (Protonix Ec Tab) 40 mg PO 0600 [facility] Last Admin: 12/25/18 05:19 Dose: 40 mg Phenol/Menthol (Phenaseptic 1.4% Throat [place]) 2 ml MT Q2H PRN PRN Reason: Sore Throat Last Admin: 12/18/18 23:50 Dose: 2 ml Potassium Chloride (K-Dur 20 Meq Er Tab) 40 meq PO ONCE ONE Stop: 12/25/18 08:45 Simethicone (Mylicon Liq) 40 mg PO QID [facility] Last Admin: 12/25/18 04:55 Dose: Not Given Tramadol HCl (Ultram) 50 mg PO TID PRN PRN Reason: Pain, moderate (4-7) Last Admin: 12/21/18 17:58 Dose: 50 mg - Labs Labs: 12/25/18 06:45 12/25/18 06:45 PT 13.6 SECONDS (9.4-12.5) H 12/19/18 07:35 INR 1.20 12/19/18 07:35 APTT 24.6 Seconds (26.9-38.3) L 12/19/18 07:35 - Constitutional Appears: Well, Non-toxic, No Acute Distress - Head Exam Head Exam: ATRAUMATIC, NORMAL INSPECTION, NORMOCEPHALIC - Eye Exam Eye Exam: EOMI - ENT Exam ENT Exam: Mucous Membranes Moist - Respiratory Exam Respiratory Exam: NORMAL BREATHING PATTERN. absent: Wheezes, Respiratory Distress - Cardiovascular Exam Cardiovascular Exam: REGULAR RHYTHM, +S2. absent: Tachycardia, Murmur - GI/Abdominal Exam GI & Abdominal Exam: Soft, Normal Bowel Sounds. absent: Tenderness Additional comments: Midline incision and left groin incisions clean, dry, nonerythematous, no dr vijay garduno intact - Extremities Exam Extremities Exam: Normal Inspection. absent: Pedal Edema - Back Exam Back Exam: absent: CVA tenderness (L), CVA tenderness (R) - Neurological Exam Neurological Exam: Alert, Awake, Oriented x3 - Psychiatric Exam Psychiatric exam: Normal Affect, Normal Mood - Skin Skin Exam: Dry, Intact, Normal Color, Warm Assessment and Plan - Assessment and Plan (Free Text) Assessment: 63F w/ left femoral hernia s/p open left femoral hernia repair with mesh complicated by SBO s/p ex-lap with mesh removal and SBO relief POD6 Plan: Continue regular diet Continue to monitor bowel function Encourage ambulation and IS use Replete electrolytes as needed DC planning D/w Dr. Alfredo Trammell PGY1
--- NOTE | 2018-12-25 14:07 | CP.PCM.PN ---
Subjective - Date & Time of Evaluation Date of Evaluation: 12/25/18 Time of Evaluation: 09:30 - Subjective Subjective: reports passing flattus and small amounts of stool, denies abd pain, no N/V Objective - Vital Signs/Intake and Output Vital Signs (last 24 hours): Temp Pulse Resp BP Pulse Ox 98.2 F 83 18 135/85 98 12/25/18 07:30 12/25/18 10:16 12/25/18 07:30 12/25/18 10:16 12/25/18 07:30 Intake and Output: 12/25/18 12/25/18 06:59 18:59 Intake Total 540 Output Total 900 Balance -360 - Medications Medications: Current Medications Amlodipine Besylate (Norvasc) 5 mg PO DAILY [facility] Last Admin: 12/25/18 10:16 Dose: 5 mg Losartan Potassium (Cozaar) 100 mg PO DAILY [facility] Last Admin: 12/25/18 10:16 Dose: 100 mg Pantoprazole Sodium (Protonix Ec Tab) 40 mg PO 0600 [facility] Last Admin: 12/25/18 05:19 Dose: 40 mg Phenol/Menthol (Phenaseptic 1.4% Throat [place]) 2 ml MT Q2H PRN PRN Reason: Sore Throat Last Admin: 12/18/18 23:50 Dose: 2 ml Simethicone (Mylicon Liq) 40 mg PO QID [facility] Last Admin: 12/25/18 10:16 Dose: Not Given Tramadol HCl (Ultram) 50 mg PO TID PRN PRN Reason: Pain, moderate (4-7) Last Admin: 12/21/18 17:58 Dose: 50 mg - Labs Labs: 12/25/18 06:45 12/25/18 06:45 PT 13.6 SECONDS (9.4-12.5) H 12/19/18 07:35 INR 1.20 12/19/18 07:35 APTT 24.6 Seconds (26.9-38.3) L 12/19/18 07:35 - Respiratory Exam Respiratory Exam: Clear to Ausculation Bilateral, NORMAL BREATHING PATTERN - Cardiovascular Exam Cardiovascular Exam: REGULAR RHYTHM - GI/Abdominal Exam GI & Abdominal Exam: Soft, Normal Bowel Sounds - Neurological Exam Neurological Exam: Alert, Awake - Skin Skin Exam: Dry, Warm Assessment and Plan (1) SBO (small bowel obstruction) Status: Resolved (2) HTN (hypertension) Status: Chronic (3) Hyponatremia Status: Acute - Assessment and Plan (Free Text) Plan: continue post-op care, monitor lytes/Na+
[2018-12-26] MEDS: Pantoprazole 40 mg EC Tab PO SCH (05:31)
[2018-12-26 07:54] VITALS: BP 153/97; PULSE 81; TEMP 97.9; O2SAT 96
[2018-12-26] MEDS: Simethicone 40 mg/0.6 ml Liquid (30 ml) PO SCH ×2 (09:02→15:10)
--- NOTE | 2018-12-26 12:21 | CP.PCM.PN ---
Subjective - Date & Time of Evaluation Date of Evaluation: 12/26/18 Time of Evaluation: 12:18 - Subjective Subjective: Surgery Progress Note for Dr. Fuentes 63F seen and evaluated at bedside this morning. No acute events overnight. Patient tolerating diet, having bowel movements, passing gas, voiding, and ambulating without difficulty. Denies f/c, n/v/d, SOB, CP or urinary symptoms. Objective - Vital Signs/Intake and Output Vital Signs (last 24 hours): Temp Pulse Resp BP Pulse Ox 97.9 F 81 18 153/97 H 96 12/26/18 06:00 12/26/18 09:05 12/26/18 06:00 12/26/18 09:05 12/26/18 06:00 Intake and Output: 12/26/18 12/26/18 06:59 18:59 Intake Total 800 Balance 800 - Medications Medications: Current Medications Amlodipine Besylate (Norvasc) 5 mg PO DAILY [facility] Last Admin: 12/26/18 09:05 Dose: 5 mg Losartan Potassium (Cozaar) 100 mg PO DAILY [facility] Last Admin: 12/26/18 09:04 Dose: 100 mg Metoclopramide HCl (Reglan) 5 mg PO 0600,1130,1630,2200 [facility] Last Admin: 12/26/18 11:54 Dose: 5 mg Pantoprazole Sodium (Protonix Ec Tab) 40 mg PO 0600 [facility] Last Admin: 12/26/18 05:31 Dose: 40 mg Phenol/Menthol (Phenaseptic 1.4% Throat [place]) 2 ml MT Q2H PRN PRN Reason: Sore Throat Last Admin: 12/18/18 23:50 Dose: 2 ml Simethicone (Mylicon Liq) 40 mg PO QID [facility] Last Admin: 12/26/18 09:02 Dose: Not Given Tramadol HCl (Ultram) 50 mg PO TID PRN PRN Reason: Pain, moderate (4-7) Last Admin: 12/21/18 17:58 Dose: 50 mg - Labs Labs: 12/25/18 06:45 12/25/18 06:45 PT 13.6 SECONDS (9.4-12.5) H 12/19/18 07:35 INR 1.20 12/19/18 07:35 APTT 24.6 Seconds (26.9-38.3) L 12/19/18 07:35 - Constitutional Appears: Well, Non-toxic, No Acute Distress - Head Exam Head Exam: ATRAUMATIC, NORMAL INSPECTION, NORMOCEPHALIC - Eye Exam Eye Exam: EOMI - ENT Exam ENT Exam: Mucous Membranes Moist - Respiratory Exam Respiratory Exam: NORMAL BREATHING PATTERN. absent: Wheezes, Respiratory Distress - Cardiovascular Exam Cardiovascular Exam: REGULAR RHYTHM, +S1, +S2. absent: Murmur - GI/Abdominal Exam GI & Abdominal Exam: Soft, Normal Bowel Sounds. absent: Tenderness Additional comments: midline abdominal incision clean, dry with shaan intact, no drainage or bleeding noted, nonerythematous Inguinal right sided shaan removed at bedside - Neurological Exam Neurological Exam: Alert, Awake, Oriented x3 - Psychiatric Exam Psychiatric exam: Normal Affect, Normal Mood - Skin Skin Exam: Dry, Intact, Normal Color, Warm Assessment and Plan - Assessment and Plan (Free Text) Assessment: 63F w/ SBO s/p ex-lap with mesh removal and SBO relief POD7 Plan: Patient clinically stable pending discharge today Inguinal shaan removed at bedside Patient to follow up with Dr. Fuentes prior to January 03, for midline staple removal and post-operative check Patient to resume home medications and activity as tolerated Cleared for discharge from surgical standpoint D/w Dr. Alfredo Trammell PGY1
--- NOTE | 2018-12-27 01:59 | DS ---
HOSPITAL COURSE The patient is a 63-year-old female admitted through the emergency department on 12/18/2018 with recurrent small-bowel obstruction. The patient underwent surgery on 12/19/[address] Fuentes and had an uneventful postoperative course. The patient was medically stable for discharge today. PHYSICAL EXAMINATION: VITAL SIGNS: Blood pressure 135/71, temperature 98.1, pulse 79, and respiratory rate 18. LUNGS: Clear. HEART: Regular rate and rhythm. ABDOMEN: Soft and nontender. Bowel sounds are normoactive. EXTREMITIES: Without cyanosis, clubbing, or edema. NEUROLOGIC: The patient is awake and oriented x3 without focal sensory or motor deficits. SKIN: Warm and dry. IMPRESSION: 1. Recurrent small-bowel obstruction. 2. Hypertension. 3. 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 PLAN: The patient will be discharged to home today on the following medications. Losartan 100 mg daily and amlodipine 5 mg daily. She will be maintained on a heart-healthy diet. Activity is ad libitum. The patient will follow a 1000 to 1500 mL fluid restriction. She will be seen as an outpatient within next 1 to 2 weeks for monitoring of blood pressure and sodium level. DANIEL Montague MD
== END 2018-12-26 15:18 | disposition home or self-care (01) | DRG 982 ==
LOC: ED 13:44 → ERH 17:03 → 5RSO 19:10
PROVIDERS: ADMIT Internal Medicine; ATTEND Internal Medicine
PROC: 0D9670Z Drainage of Stomach with Drainage Device, Via Natural or Artificial Opening (ICD-10-PCS; 2018-12-18)
PROC: 0WPG0JZ Removal of Synthetic Substitute from Peritoneal Cavity, Open Approach (ICD-10-PCS; principal; 2018-12-19 10:30)
DX: T85.598A Other mechanical complication of other gastrointestinal prosthetic devices, implants and grafts, initial encounter (principal); K91.31 Postprocedural partial intestinal obstruction; K91.89 Other postprocedural complications and disorders of digestive system; E22.2 Syndrome of inappropriate secretion of antidiuretic hormone; R18.8 Other ascites; K59.00 Constipation, unspecified; E86.0 Dehydration; I10 Essential (primary) hypertension; Y73.3 Surgical instruments, materials and gastroenterology and urology devices (including sutures) associated with adverse incidents; Z88.0 Allergy status to penicillin; T43.225A Adverse effect of selective serotonin reuptake inhibitors, initial encounter